=== PATIENT | female | born 1940 | race Two or more races ===

== ENCOUNTER 2019-12-28 09:56 | Inpatient (IN) | payer BC, MEDICARE, OTHER ==
[~2019-12-28] VITALS: Ht 157.5 cm; Wt 55.6 kg
[2019-12-28] MEDS ORDERED: dilTIAZem 25 MG/5 ML VIAL IV ONE (10:15)
[2019-12-28] MEDS ORDERED: METOPROLOL TARTRATE 1MG/1ML-5ML VIAL IV ONE (10:15)
[2019-12-28] MEDS ORDERED: diphenhdrAMINE HCL 50 MG/1 ML VL IV ONE (10:15)
[2019-12-28] MEDS ORDERED: ADENOSINE 6 MG/2 ML INJ IV ONE (10:15)
[2019-12-28] MEDS ORDERED: diphenhdrAMINE HCL 50 MG/1 ML VL ONE (10:17)
[2019-12-28 10:20] LABS: Basophils # (auto) 0.1 10 ^3/uL (0-0.2); Eosinophils # (auto) 0 10 ^3/uL (0-0.8); Monocytes # (auto) 0.7 10 ^3/uL (0-1.3); Nucleated Red Blood Cells % 0.1 %
[2019-12-28 10:22] LABS: Basophils % (auto) 1.2 % (0.0-2.0); Eosinophils % (auto) 0.2 % (0.0-7.0); Hematocrit 36.8 % (36.0-46.0); Hemoglobin 12.2 g/dL (12.2-16.2); Lymphocytes # (auto) 1.4 10 ^3/uL (0.4-5.4); Lymphocytes % (auto) 14.2 % (10.0-50.0); Mean Corpuscular Hemoglobin 25.9 pg (28.0-32.0); Mean Corpuscular Hgb Conc. 33.2 g/dL (32.0-36.0); Mean Corpuscular Volume 78.1 fL (80.0-100.0); Monocytes % (auto) 7.4 % (0.0-12.0); Neutrophils # (auto) 7.4 10 ^3/uL (1.6-8.6); Platelet Count (auto) 228 10^3/uL (140-450); Red Blood Cells 4.72 10^6/uL (4.0-5.20); Red Cell Distribution Width 14.3 % (11.8-14.3); White Blood Cell 9.6 10^3/uL (4.4-10.8)
[2019-12-28] MEDS ORDERED: AMIODARONE 450mg/250ml AE 250 ML IV SCH (10:23)
[2019-12-28 10:29] LABS: INR 1.03 (0.9-1.15)
[2019-12-28 10:32] LABS: Albumin 3.6 g/dL (3.4-5.0); BUN/Creatinine Ratio 16.7; Calcium 8.4 mg/dL (8.5-10.1); Potassium 3.4 mmol/L (3.5-5.1)
[2019-12-28 10:37] LABS: Bilirubin, Total 0.9 mg/dL (0.2-1.0); Total Protein 7.7 g/dL (6.4-8.2)
[2019-12-28] MEDS ORDERED: LEVO25TA6 PO (10:37)
[2019-12-28] MEDS ORDERED: AMLO10TA13 PO (10:37)
[2019-12-28] MEDS ORDERED: NITR0.4S29 SL (10:38)
[2019-12-28 11:42] LABS: Urine Bacteria NONE SEEN /hpf (None Seen); Urine Blood Negative /uL (Negative); Urine Mucus FEW (None Seen); Urine Specific Gravity 1.012 (1.001-1.035); Urine WBC <1 /hpf (0 - 5)
[2019-12-28] MEDS ORDERED: ASP81EC PO (13:40)
[2019-12-28] MEDS ORDERED: ONDANSETRON HCL 4 MG/2 ML VIAL IV PRN (14:00)
[2019-12-28] MEDS ORDERED: ACETAMINOPHEN 500 MG TAB PO PRN (14:00)
[2019-12-28] MEDS ORDERED: POTASSIUM EFFERVESENT TAB 25 MEQ PO ONE (14:00)
[2019-12-28] MEDS ORDERED: NITROGLYCERIN 0.4 MG SL TAB SL PRN (14:00)
[2019-12-28] MEDS ORDERED: MORPHINE SULF INJ 2 MG/ML SYRINGE 1ML IV PRN ×2 (14:00)
[2019-12-28] MEDS ORDERED: HYDROcodone-ACET 5/325MG TAB PO PRN (14:00)
[2019-12-28 15:00] VITALS: BP 126/76
[2019-12-28] MEDS ORDERED: AMIODARONE HCL 200 MG TAB PO ONE (16:30)
[2019-12-28 16:52] VITALS: BP 100/73
[2019-12-28 17:56] LABS: Cholesterol 136 mg/dL (< 200); Triglycerides 70 mg/dL (< 150)
[2019-12-28 17:59] LABS: HDL Cholesterol 50 mg/dL (40-59); LDL Cholesterol 74 mg/dL (< 100)
[2019-12-28 21:26] VITALS: BP 129/66
[2019-12-28] MEDS: APIXABAN 2.5 MG TAB PO SCH (22:21)
[2019-12-28] MEDS: METOPROLOL TARTRATE 25 MG TAB PO SCH (22:23)
[2019-12-29 05:26] VITALS: BP 123/62
[2019-12-29 05:29] LABS: Basophils # (auto) 0.1 10 ^3/uL (0-0.2); Eosinophils # (auto) 0.1 10 ^3/uL (0-0.8); Eosinophils % (auto) 0.9 % (0.0-7.0); Hematocrit 34.9 % (36.0-46.0); Hemoglobin 11.4 g/dL (12.2-16.2); Lymphocytes # (auto) 1.7 10 ^3/uL (0.4-5.4); Mean Corpuscular Hemoglobin 25.6 pg (28.0-32.0); Mean Corpuscular Hgb Conc. 32.6 g/dL (32.0-36.0); Mean Corpuscular Volume 78.5 fL (80.0-100.0); Monocytes # (auto) 0.6 10 ^3/uL (0-1.3); Monocytes % (auto) 7.6 % (0.0-12.0); Neutrophils # (auto) 5.6 10 ^3/uL (1.6-8.6); Neutrophils % (auto) 69.5 % (37.0-80.0); Nucleated Red Blood Cells % 0.1 %; Platelet Count (auto) 209 10^3/uL (140-450); Red Blood Cells 4.45 10^6/uL (4.0-5.20); Red Cell Distribution Width 14.3 % (11.8-14.3); White Blood Cell 8.1 10^3/uL (4.4-10.8)
[2019-12-29 05:50] LABS: Calcium 8.1 mg/dL (8.5-10.1); Potassium 4.6 mmol/L (3.5-5.1)
[2019-12-29 05:54] LABS: BUN/Creatinine Ratio 20.4
[2019-12-29 08:39] VITALS: BP 112/66
[2019-12-29] MEDS ORDERED: ASPirin 81 mg TAB PO SCH (10:00)
[2019-12-29] MEDS: METOPROLOL TARTRATE 25 MG TAB PO SCH ×2 (10:00→21:27)
[2019-12-29] MEDS: FAMOTIDINE 20 MG TAB PO SCH (10:24)
[2019-12-29] MEDS: AMIODARONE HCL 200 MG TAB PO SCH ×2 (10:25→21:27)
[2019-12-29] MEDS: APIXABAN 2.5 MG TAB PO SCH ×2 (10:25→21:27)
[2019-12-29 12:57] VITALS: BP 128/67
[2019-12-29] MEDS ORDERED: POTASSIUM CHL 20 Meq TABLET PO ONE (13:00)
[2019-12-29] MEDS ORDERED: FUROSEMIDE 20 MG/2 ML VIAL IV ONE (13:00)
[2019-12-29 22:00] VITALS: BP 124/71
[2019-12-30 04:55] VITALS: BP 129/69
[2019-12-30 06:17] LABS: Calcium 8.1 mg/dL (8.5-10.1); Potassium 4.5 mmol/L (3.5-5.1)
[2019-12-30 06:18] LABS: BUN/Creatinine Ratio 22.5
[2019-12-30] MEDS: LEVOTHYROXINE SODIUM 25 MCG TAB PO SCH (06:29)
[2019-12-30 08:00] VITALS: BP 133/87
[2019-12-30 09:00] VITALS: BP 133/87
[2019-12-30] MEDS ORDERED: ADENOSINE 47 MG in GIVE UN-DILUTED 0 ML IV STA (09:45)
[2019-12-30] MEDS ORDERED: FUROSEMIDE 40 MG/4 ML VIAL IV ONE (09:45)
[2019-12-30] MEDS: FAMOTIDINE 20 MG TAB PO SCH (11:48)
[2019-12-30] MEDS: APIXABAN 2.5 MG TAB PO SCH ×2 (11:49→21:45)
[2019-12-30] MEDS: METOPROLOL TARTRATE 25 MG TAB PO SCH (11:49)
[2019-12-30] MEDS: AMIODARONE HCL 200 MG TAB PO SCH (11:50)
[2019-12-30 13:00] VITALS: BP 127/84
[2019-12-30 17:00] VITALS: BP 136/65
[2019-12-30] MEDS ORDERED: FUROSEMIDE 40 MG/4 ML VIAL IV SCH ×2 (18:00)
[2019-12-30] MEDS: CARVEDILOL 12.5 MG TAB PO SCH (21:45)
[2019-12-30] MEDS: SACUBITRIL-VALSARTAN 24mg/26mg TAB PO SCH (21:46)
[2019-12-30 22:00] VITALS: BP 155/78
[2019-12-31 05:00] VITALS: BP 117/55
[2019-12-31 06:34] LABS: Basophils # (auto) 0 10 ^3/uL (0-0.2); Basophils % (auto) 0.3 % (0.0-2.0); Eosinophils # (auto) 0 10 ^3/uL (0-0.8); Monocytes # (auto) 0.5 10 ^3/uL (0-1.3); Neutrophils # (auto) 6.4 10 ^3/uL (1.6-8.6); White Blood Cell 8.1 10^3/uL (4.4-10.8)
[2019-12-31 06:36] LABS: Hematocrit 32.5 % (36.0-46.0); Hemoglobin 10.8 g/dL (12.2-16.2); Lymphocytes # (auto) 1.1 10 ^3/uL (0.4-5.4); Lymphocytes % (auto) 13.6 % (10.0-50.0); Mean Corpuscular Hemoglobin 26.1 pg (28.0-32.0); Mean Corpuscular Hgb Conc. 33.4 g/dL (32.0-36.0); Mean Corpuscular Volume 78.1 fL (80.0-100.0); Monocytes % (auto) 6.5 % (0.0-12.0); Neutrophils % (auto) 79.6 % (37.0-80.0); Platelet Count (auto) 202 10^3/uL (140-450); Red Blood Cells 4.15 10^6/uL (4.0-5.20); Red Cell Distribution Width 14.2 % (11.8-14.3)
[2019-12-31] MEDS ORDERED: FUROSEMIDE 20 MG/2 ML VIAL ONE (06:37)
[2019-12-31] MEDS ORDERED: FUROSEMIDE 20 MG/2 ML VIAL IV ONE (06:45)
[2019-12-31] MEDS: LEVOTHYROXINE SODIUM 25 MCG TAB PO SCH (06:46)
[2019-12-31 06:49] LABS: Albumin 2.9 g/dL (3.4-5.0); Potassium 3.9 mmol/L (3.5-5.1)
[2019-12-31 06:55] LABS: BUN/Creatinine Ratio 23.5; Bilirubin, Total 0.6 mg/dL (0.2-1.0); Total Protein 6.3 g/dL (6.4-8.2)
[2019-12-31 08:00] VITALS: BP 128/64
[2019-12-31 09:00] VITALS: BP 128/64
[2019-12-31] MEDS: AMIODARONE HCL 200 MG TAB PO SCH (09:12)
[2019-12-31] MEDS: FAMOTIDINE 20 MG TAB PO SCH (09:14)
[2019-12-31] MEDS: APIXABAN 2.5 MG TAB PO SCH (09:14)
[2019-12-31] MEDS: SACUBITRIL-VALSARTAN 24mg/26mg TAB PO SCH (09:14)
[2019-12-31] MEDS: CARVEDILOL 12.5 MG TAB PO SCH (10:00)
[2019-12-31 13:00] VITALS: BP 107/47
[2019-12-31 14:46] VITALS: BP 107/47
[2019-12-31] MEDS ORDERED: FUROSEMIDE 20 MG/2 ML VIAL IV SCH (18:00)
== END 2019-12-31 15:55 | disposition home or self-care (01) | DRG 280 ==
LOC: EDBD → ER 09:56 → EDBD 09:56 → TELE 09:57 → TELE-WESTW 15:41
PROVIDERS: ADMIT Nurse Practitioner Acute Care; ATTEND Internal Medicine
DX: I48.91 Unspecified atrial fibrillation (principal); I50.41 Acute combined systolic (congestive) and diastolic (congestive) heart failure; I21.A1 Myocardial infarction type 2; D68.59 Other primary thrombophilia; E87.1 Hypo-osmolality and hyponatremia; I13.0 Hypertensive heart and chronic kidney disease with heart failure and stage 1 through stage 4 chronic kidney disease, or unspecified chronic kidney disease; E87.6 Hypokalemia; I27.20 Pulmonary hypertension, unspecified; E03.9 Hypothyroidism, unspecified; N18.3 Chronic kidney disease, stage 3 (moderate); Z88.8 Allergy status to other drugs, medicaments and biological substances; Z95.1 Presence of aortocoronary bypass graft; Z95.2 Presence of prosthetic heart valve; Z79.899 Other long term (current) drug therapy; Z79.82 Long term (current) use of aspirin
CPT/HCPCS: 36415; 71045; 78452; 80048; 80053; 80061; 81001; 83735; 83880; 84443; 84484; 85025; 85379; 85610; 85730; 93005; 93017; 93306; 93970; 96365; 96375; G0378; J0153

== ENCOUNTER → 2020-01-01 | Emergency (ER) | payer MEDICARE ==
[~2020-01-01] VITALS: Ht 154.9 cm; Wt 56.2 kg
[~2020-01-01] MED LIST: AMLO10TA13 PO; ASP81EC PO; LEVO25TA6 PO; NITR0.4S29 SL
[2020-01-01 21:17] VITALS: BP 93/47
== END | disposition home or self-care (01) ==
LOC: EDBD 17:25 → ER 17:25
DX: M23.52 Chronic instability of knee, left knee (principal); I11.0 Hypertensive heart disease with heart failure; I50.9 Heart failure, unspecified; I48.91 Unspecified atrial fibrillation; Z95.1 Presence of aortocoronary bypass graft; Z88.5 Allergy status to narcotic agent; Z88.8 Allergy status to other drugs, medicaments and biological substances; Z79.82 Long term (current) use of aspirin; Z79.899 Other long term (current) drug therapy
CPT/HCPCS: 73562

== ENCOUNTER 2020-01-18 19:10 | Inpatient (IN) | payer MEDICARE ==
[~2020-01-18] VITALS: Ht 157.5 cm; Wt 52.9 kg
[2020-01-18 20:05] LABS: Basophils # (auto) 0 10 ^3/uL (0-0.2); Basophils % (auto) 0.2 % (0.0-2.0); Eosinophils # (auto) 0 10 ^3/uL (0-0.8); Lymphocytes # (auto) 0.5 10 ^3/uL (0.4-5.4); Monocytes # (auto) 0.2 10 ^3/uL (0-1.3)
[2020-01-18 20:09] LABS: Lymphocytes % (auto) 4.4 % (10.0-50.0); Monocytes % (auto) 1.6 % (0.0-12.0); Neutrophils % (auto) 93.8 % (37.0-80.0); White Blood Cell 11.1 10^3/uL (4.4-10.8)
[2020-01-18 20:10] LABS: Hematocrit 41.4 % (36.0-46.0); Hemoglobin 13.5 g/dL (12.2-16.2); Mean Corpuscular Hemoglobin 25.8 pg (28.0-32.0); Mean Corpuscular Hgb Conc. 32.7 g/dL (32.0-36.0); Mean Corpuscular Volume 78.7 fL (80.0-100.0); Neutrophils # (auto) 10.4 10 ^3/uL (1.6-8.6); Red Blood Cells 5.26 10^6/uL (4.0-5.20); Red Cell Distribution Width 14.8 % (11.8-14.3)
[2020-01-18 20:11] LABS: Platelet Count (auto) 217 10^3/uL (140-450)
[2020-01-18 20:22] LABS: Albumin 3.9 g/dL (3.4-5.0); Calcium 8.8 mg/dL (8.5-10.1); Potassium 3.8 mmol/L (3.5-5.1)
[2020-01-18 20:29] LABS: BUN/Creatinine Ratio 21.7; Bilirubin, Total 0.8 mg/dL (0.2-1.0); Total Protein 8.2 g/dL (6.4-8.2)
[2020-01-18 20:36] LABS: Amylase 30 U/L (25-115); Lipase 63 U/L (73-393)
[2020-01-18 20:50] LABS: INR 1.01 (0.9-1.15); Partial Thromboplastin Time 27.1 sec (23.64-32.05)
[2020-01-19] VITALS (7 sets, daily range): BP systolic 124–173; BP diastolic 53–74
[2020-01-19] MEDS ORDERED: FUROSEMIDE 20 MG/2 ML VIAL IV ONE (01:15)
[2020-01-19] MEDS ORDERED: ONDANSETRON HCL 4 MG/2 ML VIAL IV PRN (03:00)
[2020-01-19] MEDS ORDERED: ACETAMINOPHEN 325 MG TAB PO PRN (03:00)
[2020-01-19] MEDS ORDERED: MORPHINE SULF INJ 2 MG/ML SYRINGE 1ML IV PRN (03:15)
[2020-01-19] MEDS ORDERED: NITROGLYCERIN 0.4 MG SL TAB SL PRN (03:15)
[2020-01-19 04:05] LABS: Urine WBC None Seen /hpf (0 - 5)
[2020-01-19 04:25] LABS: Urine Bacteria NONE SEEN /hpf (None Seen); Urine Blood Negative /uL (Negative); Urine Specific Gravity 1.012 (1.001-1.035)
[2020-01-19] MEDS ORDERED: APIX2.5T PO (06:00)
[2020-01-19] MEDS ORDERED: POTA-180 PO (06:00)
[2020-01-19] MEDS ORDERED: FURO20TA3 PO (06:00)
[2020-01-19] MEDS ORDERED: AMIO200T33 PO (06:00)
[2020-01-19] MEDS: LEVOTHYROXINE SODIUM 25 MCG TAB PO SCH (06:17)
[2020-01-19] MEDS ORDERED: MECLIZINE HCL 25 MG TAB PO PRN (07:15)
[2020-01-19] MEDS: FUROSEMIDE 40 MG TAB PO SCH (09:21)
[2020-01-19] MEDS: FAMOTIDINE 20 MG TAB PO SCH (09:22)
[2020-01-19] MEDS: ASPirin 81 mg TAB PO SCH (09:22)
[2020-01-19] MEDS: AMIODARONE HCL 200 MG TAB PO SCH (09:22)
[2020-01-19] MEDS: APIXABAN 2.5 MG TAB PO SCH ×2 (09:22→22:17)
[2020-01-19] MEDS: ATORVASTATIN 20 MG TAB PO SCH (22:17)
[2020-01-19] MEDS: TEMAZEPAM 15 MG CAP PO PRN (23:48)
[2020-01-20] VITALS (15 sets, daily range): BP systolic 90–148; BP diastolic 47–81
[2020-01-20 05:18] LABS: Basophils # (auto) 0 10 ^3/uL (0-0.2); Basophils % (auto) 0.6 % (0.0-2.0); Eosinophils # (auto) 0.1 10 ^3/uL (0-0.8); Eosinophils % (auto) 0.7 % (0.0-7.0); Hematocrit 41.9 % (36.0-46.0); Hemoglobin 13.6 g/dL (12.2-16.2); Lymphocytes # (auto) 2.3 10 ^3/uL (0.4-5.4); Lymphocytes % (auto) 30.1 % (10.0-50.0); Mean Corpuscular Hemoglobin 25.5 pg (28.0-32.0); Mean Corpuscular Hgb Conc. 32.5 g/dL (32.0-36.0); Mean Corpuscular Volume 78.4 fL (80.0-100.0); Monocytes # (auto) 0.5 10 ^3/uL (0-1.3); Monocytes % (auto) 6.9 % (0.0-12.0); Neutrophils # (auto) 4.7 10 ^3/uL (1.6-8.6); Neutrophils % (auto) 61.7 % (37.0-80.0); Nucleated Red Blood Cells % 0.1 %; Platelet Count (auto) 214 10^3/uL (140-450); Red Blood Cells 5.35 10^6/uL (4.0-5.20); Red Cell Distribution Width 14.7 % (11.8-14.3); White Blood Cell 7.6 10^3/uL (4.4-10.8)
[2020-01-20 05:36] LABS: Albumin 3.5 g/dL (3.4-5.0); Calcium 8.2 mg/dL (8.5-10.1); Potassium 3.5 mmol/L (3.5-5.1)
[2020-01-20 05:40] LABS: BUN/Creatinine Ratio 17.6; Total Protein 7.5 g/dL (6.4-8.2)
[2020-01-20] MEDS: LEVOTHYROXINE SODIUM 25 MCG TAB PO SCH (06:34)
[2020-01-20] MEDS: ASPirin 81 mg TAB PO SCH (09:08)
[2020-01-20] MEDS: FUROSEMIDE 40 MG TAB PO SCH (09:09)
[2020-01-20] MEDS: AMIODARONE HCL 200 MG TAB PO SCH (09:09)
[2020-01-20] MEDS: APIXABAN 2.5 MG TAB PO SCH ×2 (09:09→21:11)
[2020-01-20] MEDS: FAMOTIDINE 20 MG TAB PO SCH (09:10)
[2020-01-20] MEDS ORDERED: POTA-180 PO (13:10)
[2020-01-20] MEDS: ATORVASTATIN 20 MG TAB PO SCH (21:10)
[2020-01-21] VITALS (10 sets, daily range): BP systolic 125–173; BP diastolic 67–89
[2020-01-21 05:52] LABS: BUN/Creatinine Ratio 19.3; Calcium 8.5 mg/dL (8.5-10.1); Potassium 3.8 mmol/L (3.5-5.1)
[2020-01-21] MEDS: LEVOTHYROXINE SODIUM 25 MCG TAB PO SCH (06:19)
[2020-01-21] MEDS: FUROSEMIDE 40 MG TAB PO SCH (09:05)
[2020-01-21] MEDS: ASPirin 81 mg TAB PO SCH (09:05)
[2020-01-21] MEDS: AMIODARONE HCL 200 MG TAB PO SCH (09:06)
[2020-01-21] MEDS: FAMOTIDINE 20 MG TAB PO SCH (09:06)
[2020-01-21] MEDS: APIXABAN 2.5 MG TAB PO SCH ×2 (09:06→21:29)
[2020-01-21] MEDS: ATORVASTATIN 20 MG TAB PO SCH (21:29)
[2020-01-22] VITALS (8 sets, daily range): BP systolic 124–175; BP diastolic 70–98
[2020-01-22] MEDS: LEVOTHYROXINE SODIUM 25 MCG TAB PO SCH (07:11)
[2020-01-22] MEDS: FAMOTIDINE 20 MG TAB PO SCH (09:23)
[2020-01-22] MEDS: APIXABAN 2.5 MG TAB PO SCH ×2 (09:24→21:43)
[2020-01-22] MEDS: ASPirin 81 mg TAB PO SCH (09:24)
[2020-01-22] MEDS: FUROSEMIDE 40 MG TAB PO SCH (09:24)
[2020-01-22] MEDS: AMIODARONE HCL 200 MG TAB PO SCH (09:24)
[2020-01-22] MEDS: TEMAZEPAM 15 MG CAP PO PRN (21:43)
[2020-01-22] MEDS: ATORVASTATIN 20 MG TAB PO SCH (21:43)
[2020-01-23] VITALS (7 sets, daily range): BP systolic 116–173; BP diastolic 56–77
[2020-01-23 06:46] LABS: Potassium 4.1 mmol/L (3.5-5.1)
[2020-01-23] MEDS: LEVOTHYROXINE SODIUM 25 MCG TAB PO SCH (06:46)
[2020-01-23 06:51] LABS: BUN/Creatinine Ratio 19.5; Calcium 8.5 mg/dL (8.5-10.1)
[2020-01-23 06:53] LABS: Bilirubin, Total 0.7 mg/dL (0.2-1.0); Total Protein 6.3 g/dL (6.4-8.2)
[2020-01-23] MEDS: APIXABAN 2.5 MG TAB PO SCH ×2 (08:56→21:57)
[2020-01-23] MEDS: FAMOTIDINE 20 MG TAB PO SCH (09:39)
[2020-01-23] MEDS: AMIODARONE HCL 200 MG TAB PO SCH (09:39)
[2020-01-23] MEDS: FUROSEMIDE 40 MG TAB PO SCH (09:39)
[2020-01-23] MEDS: ASPirin 81 mg TAB PO SCH (09:40)
[2020-01-23] MEDS: ATORVASTATIN 20 MG TAB PO SCH (21:57)
[2020-01-23] MEDS: TEMAZEPAM 15 MG CAP PO PRN (21:57)
[2020-01-24 05:34] VITALS: BP 166/92
[2020-01-24] MEDS: LEVOTHYROXINE SODIUM 25 MCG TAB PO SCH (06:05)
[2020-01-24 06:39] LABS: Potassium 3.8 mmol/L (3.5-5.1)
[2020-01-24 06:50] LABS: Albumin 3.2 g/dL (3.4-5.0); BUN/Creatinine Ratio 18.9; Bilirubin, Total 0.8 mg/dL (0.2-1.0); Calcium 8.7 mg/dL (8.5-10.1); Total Protein 6.8 g/dL (6.4-8.2)
[2020-01-24 07:26] LABS: INR 1.04 (0.9-1.15); Partial Thromboplastin Time 27.6 sec (23.64-32.05)
[2020-01-24 09:00] VITALS: BP 141/76
[2020-01-24] MEDS: FAMOTIDINE 20 MG TAB PO SCH (09:21)
[2020-01-24] MEDS: FUROSEMIDE 40 MG TAB PO SCH (09:21)
[2020-01-24] MEDS: AMIODARONE HCL 200 MG TAB PO SCH (09:22)
[2020-01-24] MEDS: APIXABAN 2.5 MG TAB PO SCH ×2 (09:22→21:38)
[2020-01-24] MEDS: ASPirin 81 mg TAB PO SCH (09:22)
[2020-01-24] MEDS ORDERED: ACETAMINOPHEN 325 MG TAB PO PRN (12:45)
[2020-01-24] MEDS ORDERED: cefTRIAXone 1GM/50ML D5W 50 ML IV ONE (12:45)
[2020-01-24 13:00] VITALS: BP 133/67
[2020-01-24 17:00] VITALS: BP 116/62
[2020-01-24] MEDS: TEMAZEPAM 15 MG CAP PO PRN (21:38)
[2020-01-24] MEDS: ATORVASTATIN 20 MG TAB PO SCH (21:38)
[2020-01-24 22:00] VITALS: BP 141/53
[2020-01-25 05:00] VITALS: BP 156/96
[2020-01-25] MEDS: LEVOTHYROXINE SODIUM 25 MCG TAB PO SCH (06:28)
[2020-01-25 06:40] LABS: Basophils # (auto) 0 10 ^3/uL (0-0.2); Eosinophils # (auto) 0 10 ^3/uL (0-0.8); Eosinophils % (auto) 0.2 % (0.0-7.0); Monocytes # (auto) 0.6 10 ^3/uL (0-1.3)
[2020-01-25 06:42] LABS: Basophils % (auto) 0.9 % (0.0-2.0); Hematocrit 38.6 % (36.0-46.0); Hemoglobin 12.6 g/dL (12.2-16.2); Lymphocytes # (auto) 0.9 10 ^3/uL (0.4-5.4); Lymphocytes % (auto) 21.9 % (10.0-50.0); Mean Corpuscular Hemoglobin 25.5 pg (28.0-32.0); Mean Corpuscular Hgb Conc. 32.8 g/dL (32.0-36.0); Mean Corpuscular Volume 77.9 fL (80.0-100.0); Monocytes % (auto) 14.7 % (0.0-12.0); Neutrophils # (auto) 2.6 10 ^3/uL (1.6-8.6); Neutrophils % (auto) 62.3 % (37.0-80.0); Nucleated Red Blood Cells % 0.2 %; Platelet Count (auto) 176 10^3/uL (140-450); Red Blood Cells 4.95 10^6/uL (4.0-5.20); White Blood Cell 4.1 10^3/uL (4.4-10.8)
[2020-01-25 07:02] LABS: Calcium 8.1 mg/dL (8.5-10.1); Potassium 3.7 mmol/L (3.5-5.1)
[2020-01-25 07:04] LABS: BUN/Creatinine Ratio 22.2
[2020-01-25 07:14] LABS: Bilirubin, Total 0.6 mg/dL (0.2-1.0); Total Protein 6.6 g/dL (6.4-8.2)
[2020-01-25 09:00] VITALS: BP 150/74
[2020-01-25] MEDS: ASPirin 81 mg TAB PO SCH (09:35)
[2020-01-25] MEDS: AMIODARONE HCL 200 MG TAB PO SCH (09:36)
[2020-01-25] MEDS: APIXABAN 2.5 MG TAB PO SCH ×2 (09:36→22:05)
[2020-01-25] MEDS: FUROSEMIDE 40 MG TAB PO SCH (09:36)
[2020-01-25] MEDS: FAMOTIDINE 20 MG TAB PO SCH (09:36)
[2020-01-25] MEDS: cefTRIAXone 1GM/50ML D5W 50 ML IV SCH (09:37)
[2020-01-25 10:08] LABS: Urine Bacteria None Seen /hpf (None Seen); Urine WBC None Seen /hpf (0 - 5)
[2020-01-25 13:00] VITALS: BP 128/59
[2020-01-25 17:00] VITALS: BP 122/53
[2020-01-25 20:00] VITALS: BP 128/71
[2020-01-25 22:00] VITALS: BP 128/71
[2020-01-25] MEDS: ATORVASTATIN 20 MG TAB PO SCH (22:05)
[2020-01-26 05:00] VITALS: BP 144/84
[2020-01-26 05:45] LABS: Basophils # (auto) 0 10 ^3/uL (0-0.2); Eosinophils # (auto) 0 10 ^3/uL (0-0.8); Lymphocytes # (auto) 0.9 10 ^3/uL (0.4-5.4); Nucleated Red Blood Cells % 0.1 %; White Blood Cell 4.5 10^3/uL (4.4-10.8)
[2020-01-26 05:48] LABS: Basophils % (auto) 0.8 % (0.0-2.0); Eosinophils % (auto) 0.5 % (0.0-7.0); Hematocrit 40.4 % (36.0-46.0); Hemoglobin 13.1 g/dL (12.2-16.2); Lymphocytes % (auto) 20.8 % (10.0-50.0); Mean Corpuscular Hemoglobin 25.6 pg (28.0-32.0); Mean Corpuscular Hgb Conc. 32.3 g/dL (32.0-36.0); Mean Corpuscular Volume 79.2 fL (80.0-100.0); Monocytes # (auto) 0.5 10 ^3/uL (0-1.3); Monocytes % (auto) 12.1 % (0.0-12.0); Neutrophils % (auto) 65.8 % (37.0-80.0); Platelet Count (auto) 170 10^3/uL (140-450); Red Blood Cells 5.11 10^6/uL (4.0-5.20); Red Cell Distribution Width 15.1 % (11.8-14.3)
[2020-01-26] MEDS: LEVOTHYROXINE SODIUM 25 MCG TAB PO SCH (06:15)
[2020-01-26 06:17] LABS: Albumin 2.8 g/dL (3.4-5.0); BUN/Creatinine Ratio 26.3; Bilirubin, Total 0.4 mg/dL (0.2-1.0); Calcium 8.2 mg/dL (8.5-10.1); Total Protein 6.4 g/dL (6.4-8.2)
[2020-01-26] MEDS: cefTRIAXone 1GM/50ML D5W 50 ML IV SCH (08:43)
[2020-01-26] MEDS: ASPirin 81 mg TAB PO SCH (08:44)
[2020-01-26] MEDS: FAMOTIDINE 20 MG TAB PO SCH (08:44)
[2020-01-26] MEDS: AMIODARONE HCL 200 MG TAB PO SCH (08:46)
[2020-01-26] MEDS: FUROSEMIDE 40 MG TAB PO SCH (08:46)
[2020-01-26 09:00] VITALS: BP 148/73
[2020-01-26] MEDS: APIXABAN 2.5 MG TAB PO SCH ×2 (09:27→22:17)
[2020-01-26 13:00] VITALS: BP 141/71
[2020-01-26] MEDS ORDERED: levoFLOXacin 500MG 100 ML IV ONE (15:00)
[2020-01-26 17:00] VITALS: BP 151/83
[2020-01-26] MEDS: ATORVASTATIN 20 MG TAB PO SCH (22:17)
[2020-01-26 22:25] VITALS: BP 173/82
[2020-01-26] MEDS ORDERED: LABETALOL HCL 5 MG/ML 4ML SYRINGE IV ONE (22:45)
[2020-01-27 05:27] VITALS: BP 141/59
[2020-01-27] MEDS: LEVOTHYROXINE SODIUM 25 MCG TAB PO SCH (06:32)
[2020-01-27 08:58] VITALS: BP 161/68
[2020-01-27] MEDS: FAMOTIDINE 20 MG TAB PO SCH (09:26)
[2020-01-27] MEDS: ASPirin 81 mg TAB PO SCH (09:26)
[2020-01-27] MEDS: FUROSEMIDE 40 MG TAB PO SCH (09:28)
[2020-01-27] MEDS: AMIODARONE HCL 200 MG TAB PO SCH (09:28)
[2020-01-27] MEDS: APIXABAN 2.5 MG TAB PO SCH (09:29)
[2020-01-27] MEDS ORDERED: levoFLOXacin 500MG 100 ML IV SCH (10:00)
[2020-01-27 10:40] VITALS: BP 161/68
== END 2020-01-27 12:00 | disposition home or self-care (01) | DRG 280 ==
LOC: ER 19:10 → TELE 19:11 → TELE-CENTR 01-19 04:30
PROVIDERS: ADMIT Nurse Practitioner; ATTEND Internal Medicine
DX: I21.4 Non-ST elevation (NSTEMI) myocardial infarction (principal); I50.43 Acute on chronic combined systolic (congestive) and diastolic (congestive) heart failure; N39.0 Urinary tract infection, site not specified; E87.1 Hypo-osmolality and hyponatremia; I13.0 Hypertensive heart and chronic kidney disease with heart failure and stage 1 through stage 4 chronic kidney disease, or unspecified chronic kidney disease; E44.0 Moderate protein-calorie malnutrition; I42.9 Cardiomyopathy, unspecified; I48.91 Unspecified atrial fibrillation; D17.71 Benign lipomatous neoplasm of kidney; E03.9 Hypothyroidism, unspecified; E86.9 Volume depletion, unspecified; J43.9 Emphysema, unspecified; K44.9 Diaphragmatic hernia without obstruction or gangrene; B95.2 Enterococcus as the cause of diseases classified elsewhere; Z95.1 Presence of aortocoronary bypass graft; Z82.49 Family history of ischemic heart disease and other diseases of the circulatory system; Z82.3 Family history of stroke; Z88.8 Allergy status to other drugs, medicaments and biological substances; Z88.5 Allergy status to narcotic agent; Z79.899 Other long term (current) drug therapy; Z79.82 Long term (current) use of aspirin; N18.9 Chronic kidney disease, unspecified; E88.09 Other disorders of plasma-protein metabolism, not elsewhere classified
CPT/HCPCS: 36415; 70450; 71045; 74176; 80048; 80053; 81001; 81015; 82150; 83690; 83735; 83880; 84484; 85025; 85610; 85730; 87040; 87081; 87086; 87088; 87186; 93005; 96374; 97116; 97163; G0378; J0696; J1956; J2405; J3490

== ENCOUNTER 2020-02-23 17:39 | Inpatient (IN) | payer MEDICARE ==
[~2020-02-23] VITALS: Ht 157.5 cm; Wt 55.9 kg
[~2020-02-23 17:39] MED LIST changes: +AMIO200T33 PO; +APIX2.5T PO; +FURO20TA3 PO; +POTA-180 PO
[2020-02-23 19:00] LABS: Basophils # (auto) 0.1 10 ^3/uL (0-0.2); Eosinophils # (auto) 0.1 10 ^3/uL (0-0.8); Lymphocytes # (auto) 1.3 10 ^3/uL (0.4-5.4); Nucleated Red Blood Cells % 0.1 %
[2020-02-23] MEDS ORDERED: SODIUM CHLORIDE 0.9% 1,000 ML IV ONE (19:00)
[2020-02-23 19:01] LABS: Basophils % (auto) 0.6 % (0.0-2.0); Hematocrit 32.5 % (36.0-46.0); Hemoglobin 10.6 g/dL (12.2-16.2); Lymphocytes % (auto) 13.9 % (10.0-50.0); Mean Corpuscular Hemoglobin 25.8 pg (28.0-32.0); Mean Corpuscular Hgb Conc. 32.6 g/dL (32.0-36.0); Mean Corpuscular Volume 79.1 fL (80.0-100.0); Monocytes # (auto) 0.9 10 ^3/uL (0-1.3); Monocytes % (auto) 9.5 % (0.0-12.0); Platelet Count (auto) 229 10^3/uL (140-450); Red Blood Cells 4.11 10^6/uL (4.0-5.20); Red Cell Distribution Width 15.8 % (11.8-14.3); White Blood Cell 9.3 10^3/uL (4.4-10.8)
[2020-02-23 19:12] LABS: Albumin 3.2 g/dL (3.4-5.0); Calcium 8.5 mg/dL (8.5-10.1)
[2020-02-23 19:17] LABS: BUN/Creatinine Ratio 23.8; Bilirubin, Total 0.9 mg/dL (0.2-1.0); Total Protein 7.8 g/dL (6.4-8.2)
[2020-02-23] MEDS ORDERED: dilTIAZem HCL 60 MG TAB PO ONE (19:30)
[2020-02-23] MEDS ORDERED: dilTIAZem 25 MG/5 ML VIAL IV ONE (19:30)
[2020-02-24] MEDS ORDERED: NITROGLYCERIN 0.4 MG SL TAB SL PRN (02:45)
[2020-02-24] MEDS ORDERED: ONDANSETRON HCL 4 MG/2 ML VIAL IV PRN (02:45)
[2020-02-24] MEDS ORDERED: MORPHINE SULF INJ 2 MG/ML SYRINGE 1ML IV PRN (02:45)
[2020-02-24] MEDS ORDERED: FUROSEMIDE 20 MG/2 ML VIAL IV ONE (02:45)
[2020-02-24] MEDS ORDERED: ACETAMINOPHEN 325 MG TAB PO PRN (02:45)
[2020-02-24 03:50] LABS: INR 1.17 (0.9-1.15)
[2020-02-24] MEDS: LEVOTHYROXINE SODIUM 25 MCG TAB PO SCH (06:40)
--- NOTE | 2020-02-24 08:58 | NUR ---
PT ADMITTED TO FLOOR FROM E.R. WEARING [employer]. PT REPORTS NO PAIN AT THIS TIME. PT ORIENT ED TO UNIT AND CALL LIGHT. BED IN LOWEST LOCKED POSITION, SIDE RAILS UP X 2. VITALS: 98.1, 129/63, HR 109, 02 98, RR 16. WILL CONTINUE TO MONITOR.
[2020-02-24 09:00] VITALS: BP 115/55
[2020-02-24] MEDS: amLODIPine BESYLATE 5 MG TAB PO SCH (09:40)
[2020-02-24] MEDS: FUROSEMIDE 40 MG TAB PO SCH (09:41)
[2020-02-24] MEDS ORDERED: ASPirin 81 mg TAB PO SCH (10:00)
[2020-02-24] MEDS ORDERED: APIXABAN 2.5 MG TAB PO SCH (10:00)
[2020-02-24] MEDS ORDERED: AMIODARONE HCL 200 MG TAB PO SCH (10:00)
[2020-02-24 10:25] VITALS: BP 129/63
--- NOTE | 2020-02-24 11:28 | NUR ---
HOME MEDS REVIEWED BY EDEN CALLAWAY, WILL BRING PT HOME MEDS DOWN TO PHARMACY.
--- NOTE | 2020-02-24 11:51 | NUR ---
DR KENNEDY CALLED, NEW ORDERS FOR CARDIO CONSULT WITH JULIETH ONLY FOR POSSIBLE AICD PLACEMENT. NOTIFIED [facility] STOCK PREPARATION SUPERVISOR TO CALL IN. Addendum: 02/24/20 at 1154 by MASON MCCABE RN ALSO ORDERED ABX, UNABLE TO HEAR EXACT ORDER, LOUD AT NURSING STATION, DR KENNEDY REPORTS HE IS ON HIS WAY.
[2020-02-24 13:00] VITALS: BP 127/73
[2020-02-24] MEDS ORDERED: cefTRIAXone 1GM/50ML D5W 50 ML IV ONE (13:15)
--- NOTE | 2020-02-24 13:16 | NUR ---
[facility] SWAB SENT TO LAB.
--- NOTE | 2020-02-24 13:17 | NUR ---
DR KENNEDY AT NURSING STATION, REPORTS PT AND DAUGHTER WERE ALREADY EDUCATED ON PACEMAKER PLACEMENT ON LAST VISIT. DR KENNEDY REPORTS PT HAD A UTI AND THEY WERE UNABLE TO DO PROCEDURE AT TIME. REPORTS TO CALL PATIENT DAUGHTER TO GET CONSENTS SIGNED, HE REPORTS PT NEEDS FLIGHT DATA TECHNICIAN.
--- NOTE | 2020-02-24 16:34 | NUR ---
SPOKE WITH PATIENT ABOUT AICD PLACEMENT TOMORROW WITH KAREN CALLAWAY TRANSLATING. KAREN CALLAWAY ASKED PATIENT IF SHE IS AWARE OF THE RISKS AND BENEFITS OF PROCEDURE AND IF THE DOCTOR HAD ALREADY SPOKEN TO HER ABOUT PROCEDURE. PT REPORTS, "YES." PT REPORTS SHE FEELS COMFORTABLE TO SIGN CONSENTS, CONSENTS SIGNED AND PLACED IN CHART, WILL CONTINUE TO MONITOR.
--- NOTE | 2020-02-24 16:54 | NUR ---
CALLED PT DAUGHTER, DIANNA, AND NOTIFIED HER PATIENT IS TO HAVE AICD PLACED TOMORROW, DIANNA AWARE, WILL CONTINUE TO MONITOR.
[2020-02-24 17:00] VITALS: BP 110/60
--- NOTE | 2020-02-24 19:20 | NUR ---
Opening Shift Note Assumed care of patient, awake and alert. No S/S of distress/SOB or pain. Instructed on POC and to call for assist PRN, will continue to monitor for changes Q1hr and PRN. Safety precautions in place, bed is in lowest position and locked, bed rails 2x. Call light and bedside table are within reach.
[2020-02-24 22:12] VITALS: BP 109/69
[2020-02-25 04:55] VITALS: BP 96/46
[2020-02-25 06:17] LABS: Urine Bacteria NONE SEEN /hpf (None Seen); Urine Blood Negative /uL (Negative); Urine Mucus FEW (None Seen); Urine Specific Gravity 1.021 (1.001-1.035); Urine WBC 11 /hpf (0 - 5)
[2020-02-25 06:35] LABS: Potassium 3.8 mmol/L (3.5-5.1)
[2020-02-25 06:38] LABS: Basophils # (auto) 0.1 10 ^3/uL (0-0.2); Eosinophils # (auto) 0.1 10 ^3/uL (0-0.8); Lymphocytes % (auto) 12.9 % (10.0-50.0); Monocytes # (auto) 0.7 10 ^3/uL (0-1.3); Red Cell Distribution Width 15.7 % (11.8-14.3)
[2020-02-25 06:42] LABS: Basophils % (auto) 0.9 % (0.0-2.0); Eosinophils % (auto) 1.7 % (0.0-7.0); Hematocrit 30.7 % (36.0-46.0); Hemoglobin 10.2 g/dL (12.2-16.2); Mean Corpuscular Hemoglobin 26.1 pg (28.0-32.0); Mean Corpuscular Hgb Conc. 33.1 g/dL (32.0-36.0); Mean Corpuscular Volume 78.9 fL (80.0-100.0); Monocytes % (auto) 8.7 % (0.0-12.0); Neutrophils % (auto) 75.8 % (37.0-80.0); Platelet Count (auto) 217 10^3/uL (140-450); Red Blood Cells 3.89 10^6/uL (4.0-5.20); White Blood Cell 7.9 10^3/uL (4.4-10.8)
[2020-02-25 06:53] LABS: Albumin 2.7 g/dL (3.4-5.0); Bilirubin, Total 0.7 mg/dL (0.2-1.0); Total Protein 6.7 g/dL (6.4-8.2)
[2020-02-25] MEDS: LEVOTHYROXINE SODIUM 25 MCG TAB PO SCH (07:06)
[2020-02-25] MEDS ORDERED: LIDOCAINE 2%HCL (LOCAL ANESTH.) INJ 20ML MDV ONE ×2 (07:07→09:04)
--- NOTE | 2020-02-25 07:10 | NUR ---
End of Shift Note Endorsed care to day shift RN. No s/s of distress or SOB. Patient responsive to name and touch.
--- NOTE | 2020-02-25 07:20 | NUR ---
CULTURAL ANTHROPOLOGY PROFESSOR STAFF CAME TO GET PATIENT, PATIENT GOING DOWN FOR PROCEDURE VIA BED, NO DISTRESS NOTED.
[2020-02-25] MEDS ORDERED: ATROPINE SULF 1 MG/10ml SYR ONE (08:09)
[2020-02-25] MEDS ORDERED: fentaNYL CITRATE 100 MCG/2 ML VL ONE (08:09)
[2020-02-25] MEDS ORDERED: VANCOMYCIN HCL 1000 MG VL ONE (08:09)
[2020-02-25] MEDS ORDERED: MIDAZOLAM HCL 1MG/1ML-2 ML VIAL ONE (08:09)
[2020-02-25] MEDS ORDERED: VANCOMYCIN 1GM/250ML 250 ML IV ONE (08:10)
[2020-02-25] MEDS: cefTRIAXone 1GM/50ML D5W 50 ML IV SCH (09:00)
[2020-02-25] MEDS ORDERED: IODIXANOL 320MG/ML 100ML BTL IV ONE (09:01)
[2020-02-25] MEDS ORDERED: FUROSEMIDE 20 MG/2 ML VIAL ONE ×2 (09:18→09:32)
[2020-02-25] MEDS ORDERED: HYDROcodone-ACET 5/325MG TAB PO PRN (10:45)
[2020-02-25] MEDS: ceFAZolin 1GM/50ML 50 ML IV SCH ×2 (12:21→18:05)
[2020-02-25] MEDS: amLODIPine BESYLATE 5 MG TAB PO SCH (12:26)
[2020-02-25] MEDS: AMIODARONE HCL 200 MG TAB PO SCH ×2 (12:27→21:17)
[2020-02-25] MEDS: FUROSEMIDE 40 MG TAB PO SCH (12:27)
--- NOTE | 2020-02-25 12:30 | NUR ---
Pt returned to floor from quality control lab technician. Pt had a biventricular AICD placed in left upper chest. Pressure Guard in place, no blood noted at site. ammunition assembly ii laborer reports to leave in place and deflate in the morning. Pt reports no pain at this time. Vitals: 97.4, BP 120/60, HR 80, 02 97, RR 16. Pt daughter called and was updated on pt status.
[2020-02-25 13:00] VITALS: BP 120/58
[2020-02-25 16:57] VITALS: BP 103/54
--- NOTE | 2020-02-25 19:15 | NUR ---
Opening Shift Note Assumed care of patient, awake and alert. No S/S of distress/SOB or pain. Instructed on POC and to call for assistance PRN, will continue to monitor for changes Q1hr and PRN. Safety precautions maintained bed is in lowest position and locked, bed rails 2x. Call light and bedside table are within reach.
[2020-02-25] MEDS: TEMAZEPAM 15 MG CAP PO PRN (21:16)
[2020-02-25 22:14] VITALS: BP 113/58
[2020-02-26] VITALS (10 sets, daily range): BP systolic 101–122; BP diastolic 50–67
[2020-02-26] MEDS: ceFAZolin 1GM/50ML 50 ML IV SCH (02:27)
[2020-02-26 05:49] LABS: Basophils # (auto) 0.1 10 ^3/uL (0-0.2); Eosinophils # (auto) 0.2 10 ^3/uL (0-0.8); Hemoglobin 10.1 g/dL (12.2-16.2); Monocytes # (auto) 0.6 10 ^3/uL (0-1.3); White Blood Cell 6.6 10^3/uL (4.4-10.8)
[2020-02-26 05:51] LABS: Basophils % (auto) 0.8 % (0.0-2.0); Eosinophils % (auto) 2.9 % (0.0-7.0); Hematocrit 30.4 % (36.0-46.0); Lymphocytes % (auto) 14.4 % (10.0-50.0); Mean Corpuscular Hemoglobin 26.1 pg (28.0-32.0); Mean Corpuscular Hgb Conc. 33.2 g/dL (32.0-36.0); Mean Corpuscular Volume 78.8 fL (80.0-100.0); Monocytes % (auto) 9.2 % (0.0-12.0); Neutrophils # (auto) 4.8 10 ^3/uL (1.6-8.6); Neutrophils % (auto) 72.7 % (37.0-80.0); Platelet Count (auto) 177 10^3/uL (140-450); Red Blood Cells 3.86 10^6/uL (4.0-5.20); Red Cell Distribution Width 15.6 % (11.8-14.3)
[2020-02-26 05:58] LABS: Calcium 7.7 mg/dL (8.5-10.1); Potassium 3.5 mmol/L (3.5-5.1)
[2020-02-26 06:00] LABS: BUN/Creatinine Ratio 22.6
[2020-02-26] MEDS: LEVOTHYROXINE SODIUM 25 MCG TAB PO SCH (06:00)
--- NOTE | 2020-02-26 07:25 | NUR ---
Closing Shift Note Endorsed care to dayshift nurse. At this time patient has no s/s of distress or SOB, responsive to name and touch, no complaints.
[2020-02-26] MEDS: cefTRIAXone 1GM/50ML D5W 50 ML IV SCH (09:37)
[2020-02-26] MEDS: AMIODARONE HCL 200 MG TAB PO SCH ×2 (09:37→21:18)
[2020-02-26] MEDS: FUROSEMIDE 40 MG TAB PO SCH (09:37)
[2020-02-26] MEDS: amLODIPine BESYLATE 5 MG TAB PO SCH (09:38)
--- NOTE | 2020-02-26 13:15 | NUR ---
DR KENNEDY ON UNIT
--- NOTE | 2020-02-26 17:25 | NUR ---
PATIENTS ORTHOSTATIC VS COMPLETE PER DR KENNEDY ORDER.
--- NOTE | 2020-02-26 18:35 | NUR ---
NOTIFIED BY TELE THAT PATIENT HAD 3 SHORT RUNS OF VTACH. PATIENT ASYMPTOMATIC WITH NO COMPLAINTS AT THIS TIME. INFORMED DR CLANCY OF VTACH RUNS, NO ORDERS AT THIS TIME.
[2020-02-26] MEDS: TEMAZEPAM 15 MG CAP PO PRN (21:16)
[2020-02-27 05:00] VITALS: BP 108/51
[2020-02-27] MEDS: LEVOTHYROXINE SODIUM 25 MCG TAB PO SCH (06:17)
--- NOTE | 2020-02-27 07:10 | NUR ---
End of Shift Note Endorsed care to day shift RN. No s/s of distress or SOB. Patient AOX4.
[2020-02-27 08:00] VITALS: BP 110/65
[2020-02-27 09:07] VITALS: BP 110/65
[2020-02-27] MEDS: cefTRIAXone 1GM/50ML D5W 50 ML IV SCH (09:30)
[2020-02-27] MEDS: FUROSEMIDE 40 MG TAB PO SCH (09:30)
[2020-02-27] MEDS: AMIODARONE HCL 200 MG TAB PO SCH (09:30)
[2020-02-27] MEDS: amLODIPine BESYLATE 5 MG TAB PO SCH (09:31)
--- NOTE | 2020-02-27 12:48 | NUR ---
Est energy needs 0170-8337 kcal (27-30 kcal/kg BW 55.9kg) Est protein needs 45-56g (0.8-1g/kg BW 55.9kg) Will reassess prn. Addendum: 02/27/20 at [address] Amended: Links added.
--- NOTE | 2020-02-27 13:30 | NUR ---
DR KENNEDY BEDSIDE WITH PATIENT
[2020-02-27 13:51] VITALS: BP 113/53
--- NOTE | 2020-02-27 16:00 | NUR ---
Discharge instructions given as ordered. Discharge instructions also given to patients daughterAydee, over the phone. Encouraged to follow up with PMD and Motor Pool Driver as instructed. Due to weekend, we were unable to schedule appointments, however, telephone numbers and addresses were provided. All questions and concerns addressed. Patient verbalized understanding. Medication reconciliation form completed and copy given to patient. Home medications held in Pharmacy returned to patient, and no vaccines given, patient declined. IVs removed with catheters intact and pressure dressings applied. Telemetry unit returned to ICU. Patient taken to vehicle via wheelchair with all personal belongings, accompanied by staff member. No distress noted at time of departure.
--- NOTE | 2020-02-27 16:00 | NUR ---
Pt has met PT goals and is being discharged from PT caseload. Pt can continue to ambulate with nursing as tolerated.
== END 2020-02-27 16:00 | disposition home or self-care (01) | DRG 226 ==
LOC: ER 17:39 → TELE 17:40 → TELE-CENTR 02-24 08:03 → UNDODISIN 02-27 13:20
PROVIDERS: ADMIT Nurse Practitioner; ATTEND Internal Medicine
PROC: 0JH609Z Insertion of Cardiac Resynchronization Defibrillator Pulse Generator into Chest Subcutaneous Tissue and Fascia, Open Approach (ICD-10-PCS; principal; 2020-02-25)
PROC: 02HK3KZ Insertion of Defibrillator Lead into Right Ventricle, Percutaneous Approach (ICD-10-PCS; 2020-02-25)
PROC: 02HL3KZ Insertion of Defibrillator Lead into Left Ventricle, Percutaneous Approach (ICD-10-PCS; 2020-02-25)
PROC: 02H63KZ Insertion of Defibrillator Lead into Right Atrium, Percutaneous Approach (ICD-10-PCS; 2020-02-25)
PROC: 5A2204Z Restoration of Cardiac Rhythm, Single (ICD-10-PCS; 2020-02-25)
PROC: B5171ZZ Fluoroscopy of Left Subclavian Vein using Low Osmolar Contrast (ICD-10-PCS; 2020-02-25)
DX: I48.91 Unspecified atrial fibrillation (principal); N17.0 Acute kidney failure with tubular necrosis; E43 Unspecified severe protein-calorie malnutrition; I50.21 Acute systolic (congestive) heart failure; I13.0 Hypertensive heart and chronic kidney disease with heart failure and stage 1 through stage 4 chronic kidney disease, or unspecified chronic kidney disease; I42.9 Cardiomyopathy, unspecified; I48.92 Unspecified atrial flutter; I50.82 Biventricular heart failure; D64.9 Anemia, unspecified; E03.9 Hypothyroidism, unspecified; I45.10 Unspecified right bundle-branch block; J44.9 Chronic obstructive pulmonary disease, unspecified; N18.9 Chronic kidney disease, unspecified; Z82.49 Family history of ischemic heart disease and other diseases of the circulatory system; Z95.0 Presence of cardiac pacemaker; Z95.1 Presence of aortocoronary bypass graft; Z88.5 Allergy status to narcotic agent; Z88.8 Allergy status to other drugs, medicaments and biological substances; Z68.20 Body mass index [BMI] 20.0-20.9, adult
CPT/HCPCS: 33225; 33249; 36415; 71045; 80048; 80053; 81001; 83880; 84443; 84484; 85025; 85610; 85730; 86850; 86900; 86901; 87081; 92960; 93005; 96361; 96374; 96375; 97116; 97163; 97530; 99152; 99153; G0378; J0690; J0696; J2250; Q9967

== ENCOUNTER → 2022-04-25 | Outpatient (CLI) | payer OTHER ==
[~2022-04-25] MED LIST changes: +AMLO-496 PO; -AMLO10TA13 PO; -ASP81EC PO; +ASPI-394 PO
== END | disposition home or self-care (01) ==
LOC: XYW 10:03
PROVIDERS: ATTEND Internal Medicine
DX: I08.3 Combined rheumatic disorders of mitral, aortic and tricuspid valves (principal); I48.91 Unspecified atrial fibrillation; I10 Essential (primary) hypertension
CPT/HCPCS: 93306

== ENCOUNTER → 2022-08-19 | Outpatient (CLI) | payer OTHER ==
[2022-08-19 06:42] LABS: Basophils # (auto) 0.1 10 ^3/uL (0-0.2); Eosinophils # (auto) 0.1 10 ^3/uL (0-0.8); Hemoglobin 11.6 g/dL (12.2-16.2); Lymphocytes # (auto) 1.9 10 ^3/uL (0.4-5.4); Monocytes # (auto) 0.4 10 ^3/uL (0-1.3); Neutrophils # (auto) 3.7 10 ^3/uL (1.6-8.6); Neutrophils % (auto) 60.3 % (37.0-80.0); Nucleated Red Blood Cells % 0.1 %; White Blood Cell 6.2 10^3/uL (4.4-10.8)
[2022-08-19 06:46] LABS: Basophils % (auto) 1.1 % (0.0-2.0); Hematocrit 36.9 % (36.0-46.0); Mean Corpuscular Hemoglobin 26.5 pg (28.0-32.0); Mean Corpuscular Hgb Conc. 31.3 g/dL (32.0-36.0); Mean Corpuscular Volume 84.6 fL (80.0-100.0); Monocytes % (auto) 6.6 % (0.0-12.0); Red Blood Cells 4.37 10^6/uL (4.0-5.20); Red Cell Distribution Width 14.2 % (11.8-14.3)
[2022-08-19 10:37] LABS: Free T3 2.29 pg/mL (2.3-4.2); Free T4 (Free Thyroxine) 1.63 ng/dL (0.89-1.76)
[2022-08-19 11:11] LABS: Albumin 3.7 g/dL (3.4-5.0); Calcium 8.3 mg/dL (8.5-10.1); Potassium 3.8 mmol/L (3.5-5.1)
[2022-08-19 11:15] LABS: Bilirubin, Total 0.7 mg/dL (0.2-1.0); Total Protein 7.2 g/dL (6.4-8.2)
== END | disposition home or self-care (01) ==
LOC: LAB 06:21
PROVIDERS: ATTEND Internal Medicine
DX: I10 Essential (primary) hypertension (principal); E03.9 Hypothyroidism, unspecified; E78.5 Hyperlipidemia, unspecified
CPT/HCPCS: 36415; 80053; 80061; 84439; 84443; 84481; 85025

== ENCOUNTER 2023-01-03 08:58 | Inpatient (IN) | payer OTHER ==
[~2023-01-03] VITALS: Ht 154.9 cm; Wt 42.0 kg
[~2023-01-03 08:58] MED LIST changes: -AMLO-496 PO; -ASPI-394 PO; -NITR0.4S29 SL; -POTA-180 PO; +POTA-220 PO; +SACU1TAB7 PO
[2023-01-03 09:41] LABS: Basophils # (auto) 0.1 10 ^3/uL (0-0.2); Basophils % (auto) 1.3 % (0.0-2.0); Eosinophils # (auto) 0.1 10 ^3/uL (0-0.8); Eosinophils % (auto) 1.2 % (0.0-7.0); Hematocrit 37.7 % (36.0-46.0); Hemoglobin 12.2 g/dL (12.2-16.2); Lymphocytes # (auto) 1.4 10 ^3/uL (0.4-5.4); Lymphocytes % (auto) 15.6 % (10.0-50.0); Mean Corpuscular Hemoglobin 26.1 pg (28.0-32.0); Mean Corpuscular Hgb Conc. 32.3 g/dL (32.0-36.0); Mean Corpuscular Volume 80.8 fL (80.0-100.0); Monocytes # (auto) 0.7 10 ^3/uL (0-1.3); Neutrophils # (auto) 6.6 10 ^3/uL (1.6-8.6); Neutrophils % (auto) 73.9 % (37.0-80.0); Nucleated Red Blood Cells % 0.1 %; Red Blood Cells 4.67 10^6/uL (4.0-5.20); Red Cell Distribution Width 14.3 % (11.8-14.3); White Blood Cell 8.9 10^3/uL (4.4-10.8)
[2023-01-03 09:48] LABS: INR 1.21 (0.9-1.15); Partial Thromboplastin Time 29.6 sec (24.6-33.4)
[2023-01-03 09:52] LABS: Albumin 3.1 g/dL (3.4-5.0); Calcium 8.7 mg/dL (8.5-10.1); Potassium 4.5 mmol/L (3.5-5.1)
[2023-01-03 09:55] LABS: BUN/Creatinine Ratio 22.5 (10.0-20.0); Bilirubin, Total 0.6 mg/dL (0.2-1.0); Total Protein 6.6 g/dL (6.4-8.2)
[2023-01-03 09:58] LABS: Urine Bacteria MOD /hpf (None Seen); Urine Blood Negative /uL (Negative); Urine Hyaline Cast FEW /lpf (0 - 2); Urine Specific Gravity 1.021 (1.001-1.035); Urine WBC 7 /hpf (0 - 5)
[2023-01-03] MEDS ORDERED: LACTATED RINGER'S 1,000 ML IV ONE (12:00)
[2023-01-03] MEDS ORDERED: AMIODARONE HCL 150 MG in D5W 5% 100 ML IV ONE (13:00)
[2023-01-03] MEDS ORDERED: AMIODARONE 450mg/250ml AE 250 ML IV SCH (13:15)
[2023-01-03] MEDS ORDERED: CARV6.2551 PO (17:22)
[2023-01-03] MEDS ORDERED: NITROGLYCERIN 0.4 MG SL TAB SL PRN (17:30)
[2023-01-03] MEDS ORDERED: DOCUSATE SOD 100 MG CAP PO PRN (17:30)
[2023-01-03] MEDS ORDERED: ACETAMINOPHEN 325 MG TAB PO PRN (17:30)
[2023-01-03] MEDS ORDERED: MORPHINE SULFATE INJ 2 MG/ml SYRG IV PRN (17:30)
[2023-01-03] MEDS ORDERED: HYDROcodone-ACET 5/325MG TAB PO PRN (17:30)
[2023-01-03] MEDS ORDERED: ONDANSETRON HCL 4 MG/2 ML VIAL IV PRN (17:30)
[2023-01-03] MEDS: SODIUM CHLOR 0.9% PF (SALINE LOCK) 10ML VIAL/SYR IV SCH (21:35)
[2023-01-03] MEDS: APIXABAN 2.5 MG TAB PO SCH (21:36)
[2023-01-03] MEDS: PATIENTS OWN MEDICATION (Sacubitril-Valsartan (Entresto 49-51 mg) 1 TAB) PO SCH (21:42)
[2023-01-04] MEDS: AMIODARONE 450mg/250ml AE 250 ML IV SCH ×2 (03:31→10:15)
[2023-01-04] MEDS: SODIUM CHLOR 0.9% PF (SALINE LOCK) 10ML VIAL/SYR IV SCH ×3 (06:00→21:37)
[2023-01-04 06:01] LABS: Basophils # (auto) 0.1 10 ^3/uL (0-0.2); Basophils % (auto) 0.9 % (0.0-2.0); Eosinophils # (auto) 0 10 ^3/uL (0-0.8); Eosinophils % (auto) 0.2 % (0.0-7.0); Hematocrit 36.9 % (36.0-46.0); Lymphocytes # (auto) 1.2 10 ^3/uL (0.4-5.4); Lymphocytes % (auto) 13.5 % (10.0-50.0); Mean Corpuscular Hemoglobin 26.1 pg (28.0-32.0); Mean Corpuscular Hgb Conc. 32.4 g/dL (32.0-36.0); Mean Corpuscular Volume 80.6 fL (80.0-100.0); Monocytes # (auto) 0.8 10 ^3/uL (0-1.3); Monocytes % (auto) 8.8 % (0.0-12.0); Neutrophils # (auto) 6.8 10 ^3/uL (1.6-8.6); Neutrophils % (auto) 76.6 % (37.0-80.0); Nucleated Red Blood Cells % 0.8 %; Red Blood Cells 4.58 10^6/uL (4.0-5.20); White Blood Cell 8.9 10^3/uL (4.4-10.8)
[2023-01-04 06:07] LABS: Calcium 8.5 mg/dL (8.5-10.1)
[2023-01-04 06:13] LABS: BUN/Creatinine Ratio 21.9 (10.0-20.0); Bilirubin, Total 1.1 mg/dL (0.2-1.0); Total Protein 6.2 g/dL (6.4-8.2)
[2023-01-04] MEDS ORDERED: FUROSEMIDE 20 MG TAB PO SCH (10:00)
[2023-01-04] MEDS ORDERED: LEVOTHYROXINE SODIUM 25 MCG TAB PO SCH (10:00)
[2023-01-04] MEDS: APIXABAN 2.5 MG TAB PO SCH ×2 (10:41→21:37)
[2023-01-04] MEDS: PANTOPRAZOLE 40 MG/10 ML VIAL INJ IV SCH (10:41)
[2023-01-04] MEDS: PATIENTS OWN MEDICATION (Sacubitril-Valsartan (Entresto 49-51 mg) 1 TAB) PO SCH (10:42)
[2023-01-04] MEDS ORDERED: metOLazone 5 MG TAB PO ONE (15:00)
[2023-01-04] MEDS ORDERED: BUMETANIDE 2.5mg/10ml (0.25 mg/ml) INJ IV ONE (15:00)
[2023-01-04 17:15] VITALS: BP 139/81
[2023-01-04 17:34] LABS: Protein, Urine 51.8 mg/dL (0.0-11.9); Sodium Urine < 5 mmol/L (40-220)
[2023-01-04 17:36] LABS: Creatinine, Urine 187 mg/dL (30.0-125.0)
[2023-01-04 18:16] VITALS: BP 139/81
[2023-01-04] MEDS: BUMETANIDE 2.5mg/10ml (0.25 mg/ml) INJ IV SCH (19:09)
[2023-01-04 22:00] VITALS: BP 140/65
[2023-01-04] MEDS ORDERED: CARVEDILOL 3.125 MG TAB PO SCH (22:00)
[2023-01-05] MEDS: AMIODARONE 450mg/250ml AE 250 ML IV SCH (00:06)
[2023-01-05 04:51] VITALS: BP 122/73
[2023-01-05] MEDS: BUMETANIDE 2.5mg/10ml (0.25 mg/ml) INJ IV SCH (05:49)
[2023-01-05] MEDS: SODIUM CHLOR 0.9% PF (SALINE LOCK) 10ML VIAL/SYR IV SCH ×3 (05:50→21:52)
[2023-01-05] MEDS: LEVOTHYROXINE SODIUM 88 MCG TAB PO SCH (05:54)
[2023-01-05 07:02] LABS: Basophils # (auto) 0.1 10 ^3/uL (0-0.2); Basophils % (auto) 0.7 % (0.0-2.0); Eosinophils # (auto) 0 10 ^3/uL (0-0.8); Eosinophils % (auto) 0.1 % (0.0-7.0); Hematocrit 40.1 % (36.0-46.0); Hemoglobin 12.9 g/dL (12.2-16.2); Lymphocytes # (auto) 1.9 10 ^3/uL (0.4-5.4); Lymphocytes % (auto) 17.4 % (10.0-50.0); Mean Corpuscular Hemoglobin 26.5 pg (28.0-32.0); Mean Corpuscular Hgb Conc. 32.2 g/dL (32.0-36.0); Mean Corpuscular Volume 82.4 fL (80.0-100.0); Monocytes # (auto) 0.8 10 ^3/uL (0-1.3); Monocytes % (auto) 7.8 % (0.0-12.0); Red Blood Cells 4.86 10^6/uL (4.0-5.20); Red Cell Distribution Width 14.4 % (11.8-14.3); White Blood Cell 10.8 10^3/uL (4.4-10.8)
[2023-01-05 07:27] LABS: Potassium 5.4 mmol/L (3.5-5.1)
[2023-01-05 07:32] LABS: BUN/Creatinine Ratio 23.1 (10.0-20.0); Bilirubin, Total 1.3 mg/dL (0.2-1.0); Calcium 8.3 mg/dL (8.5-10.1); Magnesium 2.6 mg/dL (1.6-2.6); Phosphorus 5.8 mg/dL (2.5-4.90); Total Protein 5.8 g/dL (6.4-8.2)
[2023-01-05 09:00] VITALS: BP 119/84
[2023-01-05] MEDS: PANTOPRAZOLE 40 MG/10 ML VIAL INJ IV SCH (09:22)
[2023-01-05] MEDS: APIXABAN 2.5 MG TAB PO SCH ×2 (09:23→21:51)
[2023-01-05] MEDS ORDERED: CROM4SOL6 EACHEYE (09:25)
[2023-01-05] MEDS ORDERED: ALEN70TA74 PO (09:25)
[2023-01-05] MEDS ORDERED: DICL1GEL50 TOP (09:25)
[2023-01-05] MEDS ORDERED: CYAN1TAB14 PO (09:29)
[2023-01-05] MEDS ORDERED: CARV3.1240 PO (09:29)
[2023-01-05] MEDS ORDERED: metOLazone 5 MG TAB PO SCH (10:00)
[2023-01-05] MEDS ORDERED: Glucerna Carbsteady SHAKE Vanilla 8oz PO SCH (12:00)
[2023-01-05] MEDS ORDERED: cefTRIAXone 1GM/50ML D5W 50 ML IV ONE (12:30)
[2023-01-05] MEDS ORDERED: CARVEDILOL 3.125 MG TAB PO ONE (12:30)
[2023-01-05 13:00] VITALS: BP 110/72
[2023-01-05] MEDS ORDERED: SODIUM ZIRCONIUM CYCL 10 GM PAK PO ONE (13:30)
[2023-01-05 17:28] VITALS: BP 124/83
[2023-01-05] MEDS: Glucerna Carbsteady SHAKE Vanilla 8oz PO SCH (18:00)
[2023-01-05] MEDS: CARVEDILOL 3.125 MG TAB PO SCH (21:52)
[2023-01-05 22:00] VITALS: BP 122/69
[2023-01-05] MEDS ORDERED: CARVEDILOL 3.125 MG TAB PO SCH (22:00)
[2023-01-06 04:38] VITALS: BP 111/57
[2023-01-06] MEDS: LEVOTHYROXINE SODIUM 88 MCG TAB PO SCH (05:59)
[2023-01-06] MEDS: SODIUM CHLOR 0.9% PF (SALINE LOCK) 10ML VIAL/SYR IV SCH ×3 (06:00→21:50)
[2023-01-06 06:28] LABS: Albumin 2.4 g/dL (3.4-5.0); Calcium 7.8 mg/dL (8.5-10.1); Potassium 4.6 mmol/L (3.5-5.1)
[2023-01-06 06:33] LABS: BUN/Creatinine Ratio 24.2 (10.0-20.0); Bilirubin, Total 0.7 mg/dL (0.2-1.0); Total Protein 5.1 g/dL (6.4-8.2)
[2023-01-06] MEDS: Glucerna Carbsteady SHAKE Vanilla 8oz PO SCH ×3 (08:18→18:23)
[2023-01-06 09:00] VITALS: BP 106/59
[2023-01-06] MEDS: APIXABAN 2.5 MG TAB PO SCH ×2 (09:17→21:50)
[2023-01-06] MEDS: CARVEDILOL 3.125 MG TAB PO SCH ×2 (09:18→23:43)
[2023-01-06] MEDS: PANTOPRAZOLE 40 MG/10 ML VIAL INJ IV SCH (09:30)
[2023-01-06] MEDS: cefTRIAXone 1GM/50ML D5W 50 ML IV SCH (09:30)
[2023-01-06] MEDS ORDERED: DIGOXIN (250MCG/ML) 2 ML AMPULE IV ONE (12:45)
[2023-01-06 13:00] VITALS: BP 105/45
[2023-01-06] MEDS: DOBUTamine 1000MCG/ML 250 ML IV SCH (13:59)
[2023-01-06 17:00] VITALS: BP 101/56
[2023-01-06] MEDS ORDERED: FUROSEMIDE 40 MG/4 ML VIAL IV ONE (19:45)
[2023-01-06 22:00] VITALS: BP 107/64
[2023-01-07 05:00] VITALS: BP 118/63
[2023-01-07 05:56] LABS: Basophils # (auto) 0.1 10 ^3/uL (0-0.2); Eosinophils # (auto) 0.1 10 ^3/uL (0-0.8)
[2023-01-07 05:59] LABS: Basophils % (auto) 1.3 % (0.0-2.0); Eosinophils % (auto) 1.6 % (0.0-7.0); Hematocrit 36.7 % (36.0-46.0); Hemoglobin 12.3 g/dL (12.2-16.2); Lymphocytes # (auto) 0.9 10 ^3/uL (0.4-5.4); Lymphocytes % (auto) 12.4 % (10.0-50.0); Mean Corpuscular Hemoglobin 26.5 pg (28.0-32.0); Mean Corpuscular Hgb Conc. 33.4 g/dL (32.0-36.0); Mean Corpuscular Volume 79.3 fL (80.0-100.0); Monocytes # (auto) 0.6 10 ^3/uL (0-1.3); Monocytes % (auto) 7.8 % (0.0-12.0); Neutrophils # (auto) 5.7 10 ^3/uL (1.6-8.6); Neutrophils % (auto) 76.9 % (37.0-80.0); Nucleated Red Blood Cells % 0.1 %; Red Blood Cells 4.63 10^6/uL (4.0-5.20); Red Cell Distribution Width 14.3 % (11.8-14.3); White Blood Cell 7.4 10^3/uL (4.4-10.8)
[2023-01-07] MEDS: SODIUM CHLOR 0.9% PF (SALINE LOCK) 10ML VIAL/SYR IV SCH ×3 (06:25→21:45)
[2023-01-07] MEDS: LEVOTHYROXINE SODIUM 88 MCG TAB PO SCH (06:25)
[2023-01-07 06:27] LABS: Albumin 2.5 g/dL (3.4-5.0); BUN/Creatinine Ratio 30.3 (10.0-20.0); Calcium 8.6 mg/dL (8.5-10.1)
[2023-01-07 06:52] LABS: Bilirubin, Total 0.5 mg/dL (0.2-1.0); Magnesium 2.2 mg/dL (1.6-2.6); Phosphorus 4.7 mg/dL (2.5-4.90); Total Protein 5.6 g/dL (6.4-8.2)
[2023-01-07] MEDS: Glucerna Carbsteady SHAKE Vanilla 8oz PO SCH ×3 (08:00→18:29)
[2023-01-07 09:00] VITALS: BP 101/45
[2023-01-07] MEDS: CARVEDILOL 3.125 MG TAB PO SCH ×2 (09:54→21:43)
[2023-01-07] MEDS: cefTRIAXone 1GM/50ML D5W 50 ML IV SCH (09:58)
[2023-01-07] MEDS: APIXABAN 2.5 MG TAB PO SCH ×2 (09:58→21:43)
[2023-01-07] MEDS: FUROSEMIDE 40 MG/4 ML VIAL IV SCH (09:59)
[2023-01-07] MEDS: PANTOPRAZOLE 40 MG/10 ML VIAL INJ IV SCH (10:00)
[2023-01-07] MEDS: DOBUTamine 1000MCG/ML 250 ML IV SCH (12:38)
[2023-01-07 13:00] VITALS: BP 107/63
[2023-01-07 16:41] VITALS: BP 111/58
[2023-01-07 22:00] VITALS: BP 136/59
[2023-01-08 05:00] VITALS: BP 106/67
[2023-01-08 06:30] LABS: Basophils # (auto) 0.1 10 ^3/uL (0-0.2); Basophils % (auto) 0.9 % (0.0-2.0); Eosinophils # (auto) 0.1 10 ^3/uL (0-0.8); Hemoglobin 11.6 g/dL (12.2-16.2); Monocytes # (auto) 0.7 10 ^3/uL (0-1.3); Neutrophils # (auto) 3.9 10 ^3/uL (1.6-8.6); Nucleated Red Blood Cells % 0.1 %
[2023-01-08 06:33] LABS: Eosinophils % (auto) 2.5 % (0.0-7.0); Hematocrit 35.6 % (36.0-46.0); Lymphocytes # (auto) 0.9 10 ^3/uL (0.4-5.4); Lymphocytes % (auto) 16.6 % (10.0-50.0); Mean Corpuscular Hemoglobin 26.1 pg (28.0-32.0); Mean Corpuscular Hgb Conc. 32.5 g/dL (32.0-36.0); Mean Corpuscular Volume 80.4 fL (80.0-100.0); Monocytes % (auto) 11.6 % (0.0-12.0); Neutrophils % (auto) 68.4 % (37.0-80.0); Red Blood Cells 4.43 10^6/uL (4.0-5.20); Red Cell Distribution Width 14.5 % (11.8-14.3); White Blood Cell 5.7 10^3/uL (4.4-10.8)
[2023-01-08] MEDS: SODIUM CHLOR 0.9% PF (SALINE LOCK) 10ML VIAL/SYR IV SCH ×2 (06:33→14:20)
[2023-01-08] MEDS: LEVOTHYROXINE SODIUM 88 MCG TAB PO SCH (06:42)
[2023-01-08 08:28] LABS: Calcium 8.8 mg/dL (8.5-10.1); Potassium 4.2 mmol/L (3.5-5.1)
[2023-01-08] MEDS: Glucerna Carbsteady SHAKE Vanilla 8oz PO SCH ×2 (08:30→12:20)
[2023-01-08 08:32] LABS: BUN/Creatinine Ratio 34.2 (10.0-20.0)
[2023-01-08 09:00] VITALS: BP 127/77
[2023-01-08] MEDS: cefTRIAXone 1GM/50ML D5W 50 ML IV SCH (09:59)
[2023-01-08] MEDS: CARVEDILOL 3.125 MG TAB PO SCH (10:00)
[2023-01-08] MEDS: PANTOPRAZOLE 40 MG/10 ML VIAL INJ IV SCH (10:00)
[2023-01-08] MEDS ORDERED: DIGOXIN 0.125 MG TAB PO SCH (10:00)
[2023-01-08] MEDS: APIXABAN 2.5 MG TAB PO SCH (10:00)
[2023-01-08] MEDS: FUROSEMIDE 40 MG/4 ML VIAL IV SCH (10:01)
[2023-01-08] MEDS: DOBUTamine 1000MCG/ML 250 ML IV SCH (12:45)
[2023-01-08 13:00] VITALS: BP 110/59
[2023-01-08] MEDS ORDERED: FURO1TAB31 PO (15:05)
[2023-01-08] MEDS ORDERED: DIGO1TAB48 PO (15:05)
[2023-01-08] MEDS ORDERED: LEV88T PO (15:05)
[2023-01-08 16:09] VITALS: BP 127/77
[2023-01-08 17:00] VITALS: BP 128/66
[2023-01-09 09:00] LABS: Hepatitis B Surface Antibody Negative (Negative)
[2023-01-09 09:34] LABS: Hepatitis A Total Antibody Positive (Negative)
[2023-01-09 13:59] LABS: Hepatitis A Ab IgM Negative
[2023-01-09 14:00] LABS: Hepatitis B Core IgM Negative; Hepatitis C Antibody Negative (Negative)
== END 2023-01-08 17:27 | disposition home or self-care (01) | DRG 291 ==
LOC: ER 08:58 → TELE 17:17 → TELE-WESTW 01-04 17:00
PROVIDERS: ADMIT Nurse Practitioner Family; ATTEND Internal Medicine
PROC: 4B02XSZ Measurement of Cardiac Pacemaker, External Approach (ICD-10-PCS; principal; 2023-01-03)
DX: I13.0 Hypertensive heart and chronic kidney disease with heart failure and stage 1 through stage 4 chronic kidney disease, or unspecified chronic kidney disease (principal); I50.41 Acute combined systolic (congestive) and diastolic (congestive) heart failure; N17.0 Acute kidney failure with tubular necrosis; E87.1 Hypo-osmolality and hyponatremia; I42.8 Other cardiomyopathies; E03.9 Hypothyroidism, unspecified; E87.5 Hyperkalemia; J44.9 Chronic obstructive pulmonary disease, unspecified; K59.00 Constipation, unspecified; N18.9 Chronic kidney disease, unspecified; I08.3 Combined rheumatic disorders of mitral, aortic and tricuspid valves; R74.01 Elevation of levels of liver transaminase levels; I48.91 Unspecified atrial fibrillation; Z79.01 Long term (current) use of anticoagulants; Z82.3 Family history of stroke; Z82.49 Family history of ischemic heart disease and other diseases of the circulatory system; Z95.1 Presence of aortocoronary bypass graft; Z95.3 Presence of xenogenic heart valve; Z95.0 Presence of cardiac pacemaker
CPT/HCPCS: 36415; 71045; 76700; 80048; 80053; 80074; 81001; 82306; 82570; 83735; 83880; 83935; 83970; 84100; 84132; 84156; 84300; 84439; 84443; 84484; 85025; 85379; 85610; 85730; 86704; 86706; 86708; 86803; 87040; 87086; 87088; 87186; 87340; 93005; 93306; 93970; 96361; 96365; 99291; C9113; G0378; J0696; J2405; J7060

== ENCOUNTER → 2023-01-13 | Outpatient (CLI) | payer OTHER ==
[~2023-01-13] MED LIST changes: +ALEN70TA74 PO; -AMIO200T33 PO; +CARV3.1240 PO; +DICL1GEL50 TOP; +DIGO1TAB48 PO; +FURO1TAB31 PO; -FURO20TA3 PO; +LEV88T PO; -LEVO25TA6 PO; -SACU1TAB7 PO
[2023-01-13 08:34] LABS: Potassium 3.5 mmol/L (3.5-5.1)
[2023-01-13 08:51] LABS: Albumin 3.4 g/dL (3.4-5.0); BUN/Creatinine Ratio 29.2 (10.0-20.0); Bilirubin, Total 1.1 mg/dL (0.2-1.0); Calcium 8.7 mg/dL (8.5-10.1); Total Protein 6.7 g/dL (6.4-8.2)
== END | disposition home or self-care (01) ==
LOC: LAB 07:20
PROVIDERS: ATTEND Internal Medicine
DX: I42.0 Dilated cardiomyopathy (principal); I48.91 Unspecified atrial fibrillation
CPT/HCPCS: 36415; 80053; 80162

== ENCOUNTER → 2023-03-19 | Outpatient (CLI) | payer OTHER ==
[~2023-03-19] MED LIST changes: -DICL1GEL50 TOP; +DICL1GEL73 TOP; -LEV88T PO; +LEVO-177 PO
[2023-03-19 07:29] LABS: Eosinophils # (auto) 0.1 10 ^3/uL (0-0.8); Eosinophils % (auto) 1.8 % (0.0-7.0); Hemoglobin 12.3 g/dL (12.2-16.2); Monocytes # (auto) 0.6 10 ^3/uL (0-1.3); Monocytes % (auto) 9.4 % (0.0-12.0); Red Cell Distribution Width 15.8 % (11.8-14.3)
[2023-03-19 07:31] LABS: Basophils # (auto) 0.1 10 ^3/uL (0-0.2); Basophils % (auto) 1.4 % (0.0-2.0); Hematocrit 37.6 % (36.0-46.0); Lymphocytes % (auto) 29.4 % (10.0-50.0); Mean Corpuscular Hemoglobin 26.7 pg (28.0-32.0); Mean Corpuscular Hgb Conc. 32.8 g/dL (32.0-36.0); Mean Corpuscular Volume 81.3 fL (80.0-100.0); Neutrophils # (auto) 3.9 10 ^3/uL (1.6-8.6); Nucleated Red Blood Cells % 0.1 %; Red Blood Cells 4.62 10^6/uL (4.0-5.20); White Blood Cell 6.7 10^3/uL (4.4-10.8)
[2023-03-19 07:51] LABS: Albumin 3.6 g/dL (3.4-5.0); Calcium 8.4 mg/dL (8.5-10.1); Potassium 3.7 mmol/L (3.5-5.1)
[2023-03-19 07:56] LABS: BUN/Creatinine Ratio 19.4 (10.0-20.0); Bilirubin, Total 0.8 mg/dL (0.2-1.0); Total Protein 6.5 g/dL (6.4-8.2)
== END | disposition home or self-care (01) ==
LOC: LAB 07:07
PROVIDERS: ATTEND Internal Medicine Cardiovascular Disease
DX: I50.33 Acute on chronic diastolic (congestive) heart failure (principal); I48.0 Paroxysmal atrial fibrillation; Z95.810 Presence of automatic (implantable) cardiac defibrillator; Z45.02 Encounter for adjustment and management of automatic implantable cardiac defibrillator; Z79.01 Long term (current) use of anticoagulants
CPT/HCPCS: 36415; 80053; 85025

== ENCOUNTER → 2023-05-05 | Outpatient (CLI) | payer OTHER ==
[2023-05-05 08:14] LABS: Urine Bacteria FEW /hpf (None Seen); Urine Blood Negative /uL (Negative); Urine Clarity HAZY (Clear); Urine Color Yellow (Yellow); Urine Hyaline Cast FEW /lpf (0 - 2); Urine Protein, UAD 1+ (Negative); Urine Specific Gravity 1.016 (1.001-1.035); Urine Urobilinogen Normal (Negative); Urine WBC 222 /hpf (0 - 5); Urine WBC Clumps PRESENT /hpf (None Seen)
[2023-05-05 08:20] LABS: BUN/Creatinine Ratio 15.7 (10.0-20.0); Calcium 8.1 mg/dL (8.5-10.1); Potassium 3.8 mmol/L (3.5-5.1)
== END | disposition home or self-care (01) ==
LOC: LAB 07:28
PROVIDERS: ATTEND Internal Medicine Nephrology
DX: N18.31 Chronic kidney disease, stage 3a (principal); R82.90 Unspecified abnormal findings in urine
CPT/HCPCS: 36415; 80048; 81001; 82043

== ENCOUNTER → 2023-05-19 | Outpatient (CLI) | payer OTHER ==
[2023-05-19 07:52] LABS: Basophils # (auto) 0.1 10 ^3/uL (0-0.2); Basophils % (auto) 1.3 % (0.0-2.0); Eosinophils # (auto) 0.1 10 ^3/uL (0-0.8); Eosinophils % (auto) 1.8 % (0.0-7.0); Hemoglobin 11.5 g/dL (12.2-16.2); Lymphocytes # (auto) 1.2 10 ^3/uL (0.4-5.4); Lymphocytes % (auto) 24.6 % (10.0-50.0); Mean Corpuscular Hgb Conc. 32.8 g/dL (32.0-36.0); Mean Corpuscular Volume 82.1 fL (80.0-100.0); Monocytes # (auto) 0.4 10 ^3/uL (0-1.3); Monocytes % (auto) 7.8 % (0.0-12.0); Neutrophils # (auto) 3.2 10 ^3/uL (1.6-8.6); Neutrophils % (auto) 64.5 % (37.0-80.0); Red Blood Cells 4.26 10^6/uL (4.0-5.20); Red Cell Distribution Width 15.5 % (11.8-14.3)
[2023-05-19 08:43] LABS: Anion Gap 8.5 (5-15); Carbon Dioxide 25.5 mmol/L (20-30); Chloride 109 mmol/L (98-107); Potassium 4.1 mmol/L (3.5-5.1); Sodium 143 mmol/L (136-145)
[2023-05-19 08:49] LABS: BUN/Creatinine Ratio 15.7 (10.0-20.0); Blood Urea Nitrogen 18 mg/dL (9-23); Glucose 106 mg/dL (74-106)
== END | disposition home or self-care (01) ==
LOC: LAB 07:31
PROVIDERS: ATTEND Internal Medicine Cardiovascular Disease
DX: I48.0 Paroxysmal atrial fibrillation (principal)
CPT/HCPCS: 36415; 80048; 85025

== ENCOUNTER → 2023-08-27 | Outpatient (CLI) | payer OTHER ==
[2023-08-27 07:20] LABS: Urine Bacteria FEW /hpf (None Seen); Urine Blood Negative /uL (Negative); Urine Clarity Clear (Clear); Urine Protein, UAD Negative (Negative); Urine Specific Gravity 1.008 (1.001-1.035); Urine Urobilinogen Normal (Negative); Urine WBC 1 /hpf (0 - 5); Urine pH 6.5 (5.0-8.0)
[2023-08-27 07:22] LABS: Basophils # (auto) 0.1 10 ^3/uL (0-0.2); Eosinophils # (auto) 0.1 10 ^3/uL (0-0.8); Monocytes # (auto) 0.4 10 ^3/uL (0-1.3)
[2023-08-27 07:23] LABS: Urine Color Straw (Yellow)
[2023-08-27 07:24] LABS: Basophils % (auto) 1.1 % (0.0-2.0); Eosinophils % (auto) 1.6 % (0.0-7.0); Hemoglobin 10.7 g/dL (12.2-16.2); Lymphocytes # (auto) 1.1 10 ^3/uL (0.4-5.4); Lymphocytes % (auto) 22.1 % (10.0-50.0); Mean Corpuscular Hemoglobin 26.8 pg (28.0-32.0); Mean Corpuscular Hgb Conc. 32.5 g/dL (32.0-36.0); Mean Corpuscular Volume 82.4 fL (80.0-100.0); Monocytes % (auto) 7.1 % (0.0-12.0); Neutrophils # (auto) 3.4 10 ^3/uL (1.6-8.6); Neutrophils % (auto) 68.1 % (37.0-80.0); Nucleated Red Blood Cells % 0.1 %; Red Cell Distribution Width 15.1 % (11.8-14.3)
[2023-08-27 07:45] LABS: Alanine Aminotransferase 24 U/L (7-40); Albumin 3.9 g/dL (3.2-4.8); Alkaline Phosphatase 107 U/L (46-116); Anion Gap 8 (5-15); Aspartate Aminotransferase 24 U/L (13-40); BUN/Creatinine Ratio 15.1 (10.0-20.0); Blood Urea Nitrogen 14 mg/dL (9-23); Calcium 8.7 mg/dL (8.5-10.1); Carbon Dioxide 24 mmol/L (20-30); Chloride 108 mmol/L (98-107); Cholesterol 133 mg/dL (< 200); Glucose 91 mg/dL (74-106); HDL Cholesterol 43 mg/dL (40-59); LDL Cholesterol 83 mg/dL (< 100); Potassium 3.5 mmol/L (3.5-5.1); Sodium 140 mmol/L (136-145); Triglycerides 75 mg/dL (< 150)
[2023-08-27 07:46] LABS: Bilirubin, Total 0.6 mg/dL (0.2-1.0); Total Protein 6.2 g/dL (5.7-8.2)
[2023-08-28 15:06] LABS: Urine Bacteria FEW /hpf (None Seen); Urine Blood Negative /uL (Negative); Urine Clarity Clear (Clear); Urine Color Yellow (Yellow); Urine Hyaline Cast FEW /lpf (0 - 2); Urine Protein, UAD 1+ (Negative); Urine Specific Gravity 1.018 (1.001-1.035); Urine Urobilinogen Normal (Negative); Urine WBC 2 /hpf (0 - 5); Urine pH 5.5 (5.0-8.0)
== END | disposition home or self-care (01) ==
LOC: LAB 06:19
PROVIDERS: ATTEND Internal Medicine
DX: I13.0 Hypertensive heart and chronic kidney disease with heart failure and stage 1 through stage 4 chronic kidney disease, or unspecified chronic kidney disease (principal); I50.42 Chronic combined systolic (congestive) and diastolic (congestive) heart failure; N18.31 Chronic kidney disease, stage 3a; N39.0 Urinary tract infection, site not specified; E55.9 Vitamin D deficiency, unspecified; E03.9 Hypothyroidism, unspecified; M81.0 Age-related osteoporosis without current pathological fracture; E46 Unspecified protein-calorie malnutrition
CPT/HCPCS: 36415; 80053; 80061; 81001; 82274; 82306; 83036; 84439; 84443; 85025

== ENCOUNTER → 2023-09-29 | Outpatient (CLI) | payer OTHER | END | disposition home or self-care (01) | LOC: XYW 14:38 | PROVIDERS: ATTEND Internal Medicine | DX: I08.0 Rheumatic disorders of both mitral and aortic valves (principal); I48.21 Permanent atrial fibrillation | CPT/HCPCS: 93306 ==

== ENCOUNTER → 2023-10-15 | Outpatient (CLI) | payer OTHER ==
[2023-10-15 07:05] LABS: Chloride 106 mmol/L (98-107); Potassium 3.6 mmol/L (3.5-5.1); Sodium 139 mmol/L (136-145)
[2023-10-15 07:06] LABS: Anion Gap 6 (5-15); Carbon Dioxide 27 mmol/L (20-30)
[2023-10-15 07:11] LABS: BUN/Creatinine Ratio 15.2 (10.0-20.0); Blood Urea Nitrogen 20 mg/dL (9-23); Glucose 97 mg/dL (74-106)
== END | disposition home or self-care (01) ==
LOC: LAB 06:35
DX: I11.0 Hypertensive heart disease with heart failure (principal); I50.22 Chronic systolic (congestive) heart failure; I48.0 Paroxysmal atrial fibrillation
CPT/HCPCS: 36415; 80048

== ENCOUNTER 2023-11-17 17:21 | Inpatient (IN) | payer OTHER ==
[~2023-11-17] VITALS: Ht 154.9 cm; Wt 48.1 kg
[2023-11-17 19:24] LABS: Basophils # (auto) 0.1 10 ^3/uL (0-0.2); Basophils % (auto) 1.1 % (0.0-2.0); Eosinophils # (auto) 0.1 10 ^3/uL (0-0.8); Eosinophils % (auto) 1.1 % (0.0-7.0); Hematocrit 37.4 % (36.0-46.0); Hemoglobin 11.7 g/dL (12.2-16.2); Lymphocytes # (auto) 1.5 10 ^3/uL (0.4-5.4); Lymphocytes % (auto) 26.6 % (10.0-50.0); Mean Corpuscular Hemoglobin 25.3 pg (28.0-32.0); Mean Corpuscular Hgb Conc. 31.4 g/dL (32.0-36.0); Mean Corpuscular Volume 80.7 fL (80.0-100.0); Monocytes # (auto) 0.5 10 ^3/uL (0-1.3); Monocytes % (auto) 8.7 % (0.0-12.0); Neutrophils # (auto) 3.5 10 ^3/uL (1.6-8.6); Neutrophils % (auto) 62.5 % (37.0-80.0); Nucleated Red Blood Cells % 0.2 %; Red Blood Cells 4.64 10^6/uL (4.0-5.20); Red Cell Distribution Width 14.9 % (11.8-14.3); White Blood Cell 5.6 10^3/uL (4.4-10.8)
[2023-11-17 19:42] LABS: INR 1.26 (0.9-1.15); Partial Thromboplastin Time 28.3 SEC (24.5-34.5)
[2023-11-17 19:43] LABS: Alanine Aminotransferase 18 U/L (7-40); Albumin 3.8 g/dL (3.2-4.8); Alkaline Phosphatase 101 U/L (46-116); Anion Gap 11 (5-15); Aspartate Aminotransferase 19 U/L (13-40); Bilirubin, Total 1.1 mg/dL (0.2-1.0); Blood Urea Nitrogen 35 mg/dL (9-23); Calcium 8.5 mg/dL (8.5-10.1); Carbon Dioxide 23 mmol/L (20-30); Chloride 103 mmol/L (98-107); Glucose 101 mg/dL (74-106); Potassium 3.7 mmol/L (3.5-5.1); Sodium 137 mmol/L (136-145); Total Protein 6.1 g/dL (5.7-8.2)
[2023-11-17] MEDS ORDERED: NITROGLYCERIN 0.4 MG SL TAB SL PRN (21:15)
[2023-11-17] MEDS ORDERED: ACETAMINOPHEN 325 MG TAB PO PRN (21:15)
[2023-11-17] MEDS ORDERED: ONDANSETRON HCL 4 MG/2 ML VIAL IV PRN (21:15)
[2023-11-17] MEDS: FUROSEMIDE 20 MG/2 ML VIAL IV ONE (23:39)
[2023-11-17] MEDS: CARVEDILOL 3.125 MG TAB PO SCH (23:40)
[2023-11-17] MEDS: APIXABAN 2.5 MG TAB PO SCH (23:41)
[2023-11-17] MEDS: SACUBITRIL-VALSARTAN 24mg/26mg TAB PO SCH (23:41)
[2023-11-18 04:32] LABS: COVID19 ANTIGEN SOFIA FIA NEGATIVE (NEGATIVE); Rapid Influenza A Negative (Negative); Rapid Influenza B Negative (Negative)
[2023-11-18] MEDS: LEVOTHYROXINE SODIUM 88 MCG TAB PO SCH (06:11)
[2023-11-18] MEDS: FUROSEMIDE 20 MG/2 ML VIAL IV SCH (06:12)
[2023-11-18 07:11] LABS: Basophils # (auto) 0 10 ^3/uL (0-0.2); Basophils % (auto) 0.8 % (0.0-2.0); Eosinophils # (auto) 0.1 10 ^3/uL (0-0.8); Hematocrit 35.4 % (36.0-46.0); Hemoglobin 11.3 g/dL (12.2-16.2); Lymphocytes # (auto) 1.3 10 ^3/uL (0.4-5.4); Lymphocytes % (auto) 24.7 % (10.0-50.0); Mean Corpuscular Hemoglobin 25.2 pg (28.0-32.0); Mean Corpuscular Volume 78.7 fL (80.0-100.0); Monocytes # (auto) 0.4 10 ^3/uL (0-1.3); Monocytes % (auto) 7.7 % (0.0-12.0); Neutrophils # (auto) 3.5 10 ^3/uL (1.6-8.6); Neutrophils % (auto) 65.8 % (37.0-80.0); Nucleated Red Blood Cells % 0.2 %; Red Cell Distribution Width 14.6 % (11.8-14.3); White Blood Cell 5.4 10^3/uL (4.4-10.8)
[2023-11-18 07:12] LABS: Anion Gap 10 (5-15); Carbon Dioxide 22 mmol/L (20-30); Chloride 106 mmol/L (98-107); Potassium 3.4 mmol/L (3.5-5.1); Sodium 138 mmol/L (136-145)
[2023-11-18 07:13] LABS: Calcium 8.3 mg/dL (8.5-10.1)
[2023-11-18 07:18] LABS: BUN/Creatinine Ratio 19.8 (10.0-20.0); Glucose 85 mg/dL (74-106)
[2023-11-18 07:21] LABS: Blood Urea Nitrogen 25 mg/dL (9-23)
[2023-11-18] MEDS: CLOPIDOGREL BISULFATE 75 MG TAB PO SCH (09:39)
[2023-11-18] MEDS: DIGOXIN 0.125 MG TAB PO SCH (09:39)
[2023-11-18] MEDS: MAGNESIUM OXIDE 400 MG TAB PO ONE (10:56)
[2023-11-18] MEDS: POTASSIUM CHL 20 Meq TABLET PO ONE (10:56)
[2023-11-18] MEDS: EMPAGLIFLOZIN 10 MG TAB PO ONE (17:35)
[2023-11-18 17:50] VITALS: BP 104/63; PULSE 71; RESP 18; TEMP 98; O2SAT 98
[2023-11-18] MEDS ORDERED: MAGNESIUM OXIDE 400 MG TAB PO SCH (22:00)
[2023-11-19] MEDS ORDERED: EMPAGLIFLOZIN 10 MG TAB PO SCH (10:00)
== END 2023-11-18 17:58 | disposition home or self-care (01) | DRG 291 ==
LOC: ER 17:21 → TELE 21:29
PROVIDERS: ADMIT Nurse Practitioner; ATTEND Internal Medicine
DX: I13.0 Hypertensive heart and chronic kidney disease with heart failure and stage 1 through stage 4 chronic kidney disease, or unspecified chronic kidney disease (principal); I50.23 Acute on chronic systolic (congestive) heart failure; N18.9 Chronic kidney disease, unspecified; I48.91 Unspecified atrial fibrillation; I45.10 Unspecified right bundle-branch block; I42.8 Other cardiomyopathies; J44.9 Chronic obstructive pulmonary disease, unspecified; Z20.822 Contact with and (suspected) exposure to COVID-19; Z95.1 Presence of aortocoronary bypass graft; Z95.0 Presence of cardiac pacemaker; Z82.3 Family history of stroke; Z82.49 Family history of ischemic heart disease and other diseases of the circulatory system; Z95.3 Presence of xenogenic heart valve; Z95.818 Presence of other cardiac implants and grafts
CPT/HCPCS: 36415; 71045; 80048; 80053; 80061; 82306; 83036; 83605; 83880; 84439; 84443; 84484; 85025; 85379; 85610; 85730; 87040; 87426; 87804; 93005; 93306; 96374; G0378

== ENCOUNTER → 2023-12-08 | Outpatient (CLI) | payer OTHER ==
[2023-12-08 06:56] LABS: Basophils # (auto) 0.1 10 ^3/uL (0-0.2); Basophils % (auto) 0.7 % (0.0-2.0); Eosinophils # (auto) 0 10 ^3/uL (0-0.8); Eosinophils % (auto) 0.3 % (0.0-7.0); Hematocrit 40.3 % (36.0-46.0); Hemoglobin 12.5 g/dL (12.2-16.2); Lymphocytes # (auto) 2.1 10 ^3/uL (0.4-5.4); Lymphocytes % (auto) 28.2 % (10.0-50.0); Mean Corpuscular Hgb Conc. 30.9 g/dL (32.0-36.0); Mean Corpuscular Volume 80.8 fL (80.0-100.0); Monocytes # (auto) 0.6 10 ^3/uL (0-1.3); Monocytes % (auto) 8.2 % (0.0-12.0); Neutrophils # (auto) 4.6 10 ^3/uL (1.6-8.6); Neutrophils % (auto) 62.6 % (37.0-80.0); Nucleated Red Blood Cells % 0.2 %; Red Blood Cells 4.99 10^6/uL (4.0-5.20); Red Cell Distribution Width 15.7 % (11.8-14.3); White Blood Cell 7.4 10^3/uL (4.4-10.8)
[2023-12-08 08:00] LABS: Chloride 101 mmol/L (98-107); Potassium 4.2 mmol/L (3.5-5.1); Sodium 138 mmol/L (136-145)
[2023-12-08 08:01] LABS: Anion Gap 16 (5-15); Calcium 9.4 mg/dL (8.5-10.1); Carbon Dioxide 21 mmol/L (20-30)
[2023-12-08 08:06] LABS: BUN/Creatinine Ratio 17.6 (10.0-20.0); Blood Urea Nitrogen 36 mg/dL (9-23); Glucose 136 mg/dL (74-106)
== END | disposition home or self-care (01) ==
LOC: LAB 06:32
PROVIDERS: ATTEND Internal Medicine
DX: N17.9 Acute kidney failure, unspecified (principal); D50.9 Iron deficiency anemia, unspecified; E87.6 Hypokalemia
CPT/HCPCS: 36415; 80048; 85025

== ENCOUNTER 2023-12-16 00:13 | Inpatient (IN) | payer OTHER ==
[~2023-12-16] VITALS: Ht 152.4 cm; Wt 48.6 kg
[2023-12-16 00:41] VITALS: PULSE 125; RESP 14; O2SAT 94
[2023-12-16] MEDS: AMIODARONE BOLUS KIT 100 ML IV ONE (01:04)
[2023-12-16] MEDS: AMIODARONE 450mg/250ml AE 250 ML IV SCH ×2 (01:22→06:45)
[2023-12-16 01:28] LABS: Alanine Aminotransferase 28 U/L (7-40); Albumin 3.6 g/dL (3.2-4.8); Alkaline Phosphatase 145 U/L (46-116); Anion Gap 7 (5-15); Aspartate Aminotransferase 30 U/L (13-40); BUN/Creatinine Ratio 28.3 (10.0-20.0); Blood Urea Nitrogen 39 mg/dL (9-23); Carbon Dioxide 27 mmol/L (20-30); Chloride 90 mmol/L (98-107); Glucose 166 mg/dL (74-106); Magnesium 2.5 mg/dL (1.6-2.6); Potassium 3.9 mmol/L (3.5-5.1); Sodium 124 mmol/L (136-145)
[2023-12-16 01:29] LABS: Total Protein 6.4 g/dL (5.7-8.2)
[2023-12-16 01:34] LABS: Basophils # (auto) 0.1 10 ^3/uL (0-0.2); Basophils % (auto) 0.7 % (0.0-2.0); Eosinophils # (auto) 0.1 10 ^3/uL (0-0.8); Eosinophils % (auto) 0.7 % (0.0-7.0); Hematocrit 41.2 % (36.0-46.0); Hemoglobin 13.3 g/dL (12.2-16.2); Lymphocytes # (auto) 1.3 10 ^3/uL (0.4-5.4); Lymphocytes % (auto) 18.2 % (10.0-50.0); Mean Corpuscular Hemoglobin 24.9 pg (28.0-32.0); Mean Corpuscular Hgb Conc. 32.4 g/dL (32.0-36.0); Mean Corpuscular Volume 76.9 fL (80.0-100.0); Monocytes # (auto) 0.6 10 ^3/uL (0-1.3); Monocytes % (auto) 8.9 % (0.0-12.0); Neutrophils # (auto) 5.1 10 ^3/uL (1.6-8.6); Neutrophils % (auto) 71.5 % (37.0-80.0); Nucleated Red Blood Cells % 0.3 %; Red Blood Cells 5.36 10^6/uL (4.0-5.20); Red Cell Distribution Width 15.7 % (11.8-14.3); White Blood Cell 7.2 10^3/uL (4.4-10.8)
[2023-12-16 01:49] LABS: INR 1.06 (0.9-1.15); Partial Thromboplastin Time 26.5 SEC (24.5-34.5); Prothrombin Time 11.1 sec (9.3-11.8)
[2023-12-16] MEDS: SODIUM CHLORIDE 0.9% 1,000 ML IV ONE (02:00)
[2023-12-16] MEDS ORDERED: ONDANSETRON HCL 4 MG/2 ML VIAL IV PRN (07:00)
[2023-12-16] MEDS ORDERED: MORPHINE SULFATE INJ 2 MG/ml SYRG IV PRN (07:00)
[2023-12-16] MEDS ORDERED: ACETAMINOPHEN 325 MG TAB PO PRN (07:00)
[2023-12-16] MEDS ORDERED: NITROGLYCERIN 0.4 MG SL TAB SL PRN (07:00)
[2023-12-16 07:25] VITALS: PULSE 132; RESP 24; O2SAT 98
[2023-12-16] MEDS: LEVOTHYROXINE SODIUM 88 MCG TAB PO SCH (08:19)
[2023-12-16] MEDS ORDERED: LORazepam 2MG/ML-1ML VIAL IV PRN (10:15)
[2023-12-16] MEDS: CARVEDILOL 3.125 MG TAB PO SCH (10:56)
[2023-12-16] MEDS: FUROSEMIDE 40 MG TAB PO SCH (10:57)
[2023-12-16] MEDS: SACUBITRIL-VALSARTAN 24mg/26mg TAB PO SCH (11:00)
[2023-12-16] MEDS: ASPirin 81 mg TAB PO SCH (11:00)
[2023-12-16] MEDS ORDERED: cefTRIAXone 1GM/50ML D5W 50 ML IV ONE (12:30)
[2023-12-16 13:52] LABS: Urine Bacteria NONE SEEN /hpf (None Seen); Urine Blood Negative /uL (Negative); Urine Clarity Clear (Clear); Urine Color Yellow (Yellow); Urine Hyaline Cast FEW /lpf (0 - 2); Urine Protein, UAD Negative (Negative); Urine Specific Gravity 1.013 (1.001-1.035); Urine Urobilinogen Normal (Negative); Urine WBC 1 /hpf (0 - 5)
[2023-12-16] MEDS: SODIUM CHLORIDE 0.9% 1,000 ML IV SCH (14:04)
[2023-12-16] MEDS: MEROPENEM 1GM IVPB 50 ML IV ONE (14:05)
[2023-12-16] MEDS: DOBUTamine 1000MCG/ML 250 ML IV SCH (14:30)
[2023-12-16] MEDS: LORazepam 2MG/ML-1ML VIAL IV ONE (15:54)
[2023-12-16] MEDS: NOREPINEPHRINE 8 MG/250ML KIT 250 ML IV SCH (16:58)
[2023-12-16 19:20] VITALS: PULSE 92; RESP 18; O2SAT 98
[2023-12-16] MEDS: MEROPENEM 1GM IVPB 50 ML IV SCH (20:05)
[2023-12-17 05:25] LABS: Basophils # (auto) 0 10 ^3/uL (0-0.2); Basophils % (auto) 0.5 % (0.0-2.0); Eosinophils # (auto) 0 10 ^3/uL (0-0.8); Eosinophils % (auto) 0.4 % (0.0-7.0); Hematocrit 35.8 % (36.0-46.0); Hemoglobin 11.5 g/dL (12.2-16.2); Lymphocytes # (auto) 0.8 10 ^3/uL (0.4-5.4); Lymphocytes % (auto) 15.6 % (10.0-50.0); Mean Corpuscular Hemoglobin 24.9 pg (28.0-32.0); Mean Corpuscular Hgb Conc. 32.1 g/dL (32.0-36.0); Mean Corpuscular Volume 77.7 fL (80.0-100.0); Monocytes # (auto) 0.6 10 ^3/uL (0-1.3); Monocytes % (auto) 10.7 % (0.0-12.0); Neutrophils # (auto) 3.9 10 ^3/uL (1.6-8.6); Neutrophils % (auto) 72.8 % (37.0-80.0); Nucleated Red Blood Cells % 0.4 %; Red Blood Cells 4.61 10^6/uL (4.0-5.20); Red Cell Distribution Width 15.6 % (11.8-14.3); White Blood Cell 5.4 10^3/uL (4.4-10.8)
[2023-12-17 05:33] LABS: Alanine Aminotransferase 21 U/L (7-40); Albumin 3.1 g/dL (3.2-4.8); Alkaline Phosphatase 111 U/L (46-116); Anion Gap 5 (5-15); Aspartate Aminotransferase 19 U/L (13-40); BUN/Creatinine Ratio 28.1 (10.0-20.0); Bilirubin, Total 0.9 mg/dL (0.2-1.0); Blood Urea Nitrogen 34 mg/dL (9-23); Calcium 7.5 mg/dL (8.5-10.1); Carbon Dioxide 29 mmol/L (20-30); Chloride 96 mmol/L (98-107); Glucose 104 mg/dL (74-106); Potassium 3.7 mmol/L (3.5-5.1)
[2023-12-17 05:42] LABS: Sodium 130 mmol/L (136-145)
[2023-12-17 07:30] VITALS: PULSE 75; RESP 12; O2SAT 99
[2023-12-17] MEDS ORDERED: cefTRIAXone 1GM/50ML D5W 50 ML IV SCH (09:00)
[2023-12-17] MEDS: cefTRIAXone 1GM/50ML D5W 50 ML IV SCH (11:56)
[2023-12-17] MEDS: SODIUM CHLORIDE 0.9% 100 ML IV ONE (13:30)
[2023-12-17 19:48] VITALS: PULSE 94; RESP 18; O2SAT 100
[2023-12-17] MEDS ORDERED: METO-289 PO (21:48)
[2023-12-17] MEDS ORDERED: ASPI-543 PO (21:48)
[2023-12-17] MEDS ORDERED: SACU1TAB PO (21:48)
[2023-12-17] MEDS ORDERED: FURO40TA4 PO (21:48)
[2023-12-17] MEDS ORDERED: CYAN100056 PO (21:48)
[2023-12-17 22:26] VITALS: BP 122/68; PULSE 105; PULSE 91; RESP 14; TEMP 98; O2SAT 99
[2023-12-18 01:00] VITALS: BP 98/61; PULSE 89; RESP 18; TEMP 97.7; O2SAT 98
[2023-12-18 05:00] VITALS: BP 112/60; PULSE 65; RESP 16; TEMP 97.9; O2SAT 95
[2023-12-18 08:00] VITALS: BP 108/64; PULSE 87; PULSE 93; RESP 20; TEMP 98.3; O2SAT 99
[2023-12-18 08:40] VITALS: BP 108/64; PULSE 87; RESP 20; TEMP 98.3; O2SAT 99
[2023-12-18 08:44] LABS: Hepatitis B Surface Antigen Negative (Negative)
[2023-12-18 09:05] LABS: Hepatitis C Antibody Negative (Negative)
[2023-12-18 11:25] VITALS: BP 108/64; PULSE 87; RESP 20; TEMP 98.3; O2SAT 99
== END 2023-12-18 13:20 | disposition hospice, home (50) | DRG 100 ==
LOC: EDUNIT# 00:13 → ER 00:13 → EDBD 00:13 → TELE-CENTR 07:08 → TELE 07:08 → TELE-CENTR 12-17 20:52
PROVIDERS: ADMIT Nurse Practitioner; ATTEND Internal Medicine
DX: G40.409 Other generalized epilepsy and epileptic syndromes, not intractable, without status epilepticus (principal); G92.8 Other toxic encephalopathy; I21.A1 Myocardial infarction type 2; R57.0 Cardiogenic shock; I50.43 Acute on chronic combined systolic (congestive) and diastolic (congestive) heart failure; I48.19 Other persistent atrial fibrillation; N17.9 Acute kidney failure, unspecified; E87.1 Hypo-osmolality and hyponatremia; I42.8 Other cardiomyopathies; I13.0 Hypertensive heart and chronic kidney disease with heart failure and stage 1 through stage 4 chronic kidney disease, or unspecified chronic kidney disease; E03.9 Hypothyroidism, unspecified; E86.0 Dehydration; I35.0 Nonrheumatic aortic (valve) stenosis; I07.1 Rheumatic tricuspid insufficiency; R32 Unspecified urinary incontinence; I44.7 Left bundle-branch block, unspecified; J44.9 Chronic obstructive pulmonary disease, unspecified; M81.0 Age-related osteoporosis without current pathological fracture; I25.10 Atherosclerotic heart disease of native coronary artery without angina pectoris; N18.30 Chronic kidney disease, stage 3 unspecified; Z95.810 Presence of automatic (implantable) cardiac defibrillator; Z82.3 Family history of stroke; Z82.49 Family history of ischemic heart disease and other diseases of the circulatory system; Z95.1 Presence of aortocoronary bypass graft; Z95.3 Presence of xenogenic heart valve; Z51.5 Encounter for palliative care
CPT/HCPCS: 36415; 70450; 71045; 71250; 72125; 74176; 80053; 81001; 82962; 83735; 83880; 84443; 84484; 85025; 85610; 85730; 86803; 87040; 87081; 87086; 87088; 87186; 87340; 93005; 95819; 97110; 97116; 97163; 97530; G0378; J2185